=== PATIENT | male | born 1960 | race Caucasian/White ===

== ENCOUNTER 2022-03-28 10:32 | Inpatient (IN) ==
[2022-03-28] MEDS ORDERED: LORazepam 2 MG/ML VIAL IV ONE (11:09)
[2022-03-28] MEDS: DIAZEPAM 10 MG/2 ML SYRINGE IV PRN ×9 (11:12→20:27)
--- NOTE | 2022-03-28 11:24 | Emergency Department Note ---
Alcohol HPI General Chief Complaint: Alcohol Stated Complaint: Alcohol Time Seen by Provider: 03/28/22 10:37 Source: patient Mode of arrival: ambulatory Limitations: no limitations History of Present Illness HPI Narrative: Narrative: 62-year-old male presents the emergency department for alcohol withdrawal. Patient states that he for about the last month has been drinking about a half a gallon of hard alcohol every single day he says last drink was about an hour prior to coming in and said he has been trying to slow down his drinking over the last week and he said he goes and has these tremors and just goes back to drinking. He said he has previously stopped and said he previously has needed inpatient treatment. He dates that he does have history of seizures with says long as he gets treatment is not as bad. He said he does not remember when his last seizure was. He said that he came here as he knows that he needs help and he does want to finally stop drinking. He states that he is unable to do Librium as it makes him go crazy. He denies any other symptoms otherwise. This feels like he needs help to stop his drinking he currently has no homicidal or suicidal ideations Related Data Home Medications Medication Instructions Recorded Confirmed cholecalciferol (vitamin D3) 25 1,000 unit PO QDAY 02/08/17 03/28/22 mcg (1,000 unit) capsule vitamin B complex 1 tab PO QDAY 02/08/17 03/28/22 multivitamin 1 tab PO QDAY 05/22/17 03/28/22 magnesium oxide 400 mg (241.3 mg 400 mg PO QDAY 10/15/19 03/28/22 magnesium) tablet glucosamine HCl 1,500 mg tablet 1,500 mg PO QDAY 04/12/20 03/28/22 potassium gluconate 595 mg (99 mg) 595 mg PO QDAY 11/16/20 03/28/22 tablet Previous Rx's Medication Instructions Recorded blood-glucose meter (Glucocard #1 ea 04/09/18 Expression) blood sugar diagnostic (Glucocard #100 ea 04/12/20 Expression strips) lancets 33 gauge #100 ea 04/12/20 metformin 1,000 mg tablet 1,000 mg PO BID #180 tabs 12/12/21 omeprazole 20 mg capsule,delayed 20 mg PO QDAY PRN gastric reflux 03/09/22 release #90 caps Allergies Allergy/AdvReac Type Severity Reaction Status Date / Time chlordiazepoxide Allergy Unknown Other Verified 03/28/22 10:32 [From Librium] clindamycin Allergy Gastrointestinal Verified 03/28/22 10:32 Upset lorazepam [From Ativan] AdvReac Mild Agitated Verified 03/28/22 11:17 Review of Systems ROS ROS Narrative: Narrative: All systems ED: reviewed and negative except as stated. PFSH Narrative Patient History Narrative: Narrative: Medical/Surgical/Family History All Active Problems Alcohol withdrawal (Acute) Colonoscopy planned (Acute) Lesion of left ear (Acute) Skin lesion (Acute) Hypotension (Acute) Actinic keratoses (Acute) Right knee pain (Acute) Nerve pain (Acute) Type 2 diabetes mellitus without complications (Chronic) Abnormal findings on diagnostic imaging of lung (Chronic) Arthritis (Chronic) Obstructive sleep apnea syndrome (Chronic) Sarcoidosis (Chronic) H/O vasectomy (Chronic) H/O colonoscopy (Chronic 09/13/14) History of appendectomy (Chronic) S/P anal fissurectomy (Chronic) Thrombocytopenia (Chronic) Local superficial swelling, mass or lump (Chronic) Pancreatitis (Chronic) Leukopenia (Chronic) Hypertension, essential (Chronic 01/25/06) Hyperlipidemia (Chronic) Hepatitis, alcoholic (Chronic) Elevated liver enzymes (Chronic) Dysmetabolic syndrome X (Chronic 01/25/06) Diverticulosis of colon (Chronic 09/13/14) Alcohol withdrawal (Chronic) Alcohol abuse (Chronic) Medical History Abnormal findings on diagnostic imaging of lung Actinic keratoses Alcohol abuse Chronic Alcohol withdrawal Arthritis Colonoscopy planned Diverticulosis of colon (09/13/14) Dr. Alegre Dysmetabolic syndrome X (01/25/06) Elevated liver enzymes Hepatitis, alcoholic Hyperlipidemia Hypertension, essential (01/25/06) Hypotension Lesion of left ear Leukopenia Mild, secondary to alcohol abuse Local superficial swelling, mass or lump Salivary gland Obstructive sleep apnea syndrome Pancreatitis Acute, secondary to chronic alcohol abuse Right knee pain Sarcoidosis Skin lesion Thrombocytopenia Unspecified Type 2 diabetes mellitus without complications Surgical History H/O colonoscopy (09/13/14) Dr. Alegre H/O vasectomy History of appendectomy S/P anal fissurectomy Family History Father Alcohol abuse Mother Malignant neoplasm of colon Colon cancer, resulted in Diabetes mellitus Social History Smoking Status: Former smoker Alcohol Intake Frequency: former alcohol drinker Substance Use: does not use Exam Narrative Narrative: Narrative: Vital signs noted General: Awake. Alert. No distress. Skin: Warm. Dry. No rash. HEENT: NCAT. PERRL. EOMI. No conjunctivitis. No nystagmus. No pharyngitis. Membranes moist. Neck: No PTP. Good ROM. No meningeal signs. No stridor. No thyromegaly. No JVD. Cardiovascular: Tachycardic but regular. No murmur. No rubs. No gallops. Respiratory: No respiratory distress. Breath sounds equal. Lungs clear. Gastrointestinal: Abdomen soft. No tenderness. No distention. Normal bowel sounds. No palpable organomegaly or masses. Back: No deformity. No CVAT. Musculoskeletal: No tenderness. No swelling. No erythema. No edema. Good peripheral pulses x 4 Lymphatic: No palpable adenopathy. Neurological: No focal neurological deficits observed. Mild at agitation and tremors in both hands General Limitations: no limitations Course Vital Signs Vital signs: Vital Signs Temperature 98.2 F 03/28/22 10:32 Pulse Rate 115 H 03/28/22 10:32 Respiratory Rate 20 03/28/22 10:32 Blood Pressure 182/107 03/28/22 10:32 Pulse Oximetry (%) 95 03/28/22 10:32 Oxygen Delivery Method 03/28/22 10:32 Temperature 98.2 F 03/28/22 10:32 Pulse Rate 116 H 03/28/22 15:50 Respiratory Rate 18 03/28/22 15:01 Blood Pressure 155/103 03/28/22 15:30 Pulse Oximetry (%) 93 03/28/22 15:50 Oxygen Delivery Method 03/28/22 10:32 [facility] MDM Narrative Medical decision making narrative: Narrative: Patient presents in mild delirium tremens at this time. Does have mild tremors bilaterally but he is alert and oriented. We will go ahead and get basic labs including alcohol level. Patient will also had a CIWA CIWA done. His first CIWA was 18 and he said he actually drank about an hour ago. He is a does have history of seizures I am worried about possible him going into seizures. We will go ahead and give him Valium based on the CIWA protocol. Patient I think does need to be admitted for further evaluation as well as continued CIWA protocol so he does not going to seizures and these possibly do not become lethal. Once all the labs come back I will speak with hospitalist about admission. Patient was doing well with the Valium that he was receiving per CIWA protocol. Labs came back no acute findings CBC was normal CMP was normal just mildly elevated AST ALT and alk phos. Patient is still cannot be treated in the outpatient setting due to my believe due to worry about seizures and I think he does need benzodiazepine treatment. I did speak with Dr. Harris who has agreed to admit the patient for alcohol withdrawal. Lab Data Result diagrams: 03/28/22 12:45 03/28/22 10:58 Labs: Lab Results 03/28/22 03/28/22 03/28/22 Range/Units 10:44 10:58 10:58 WBC TNP RBC TNP Hgb TNP Hct TNP MCV TNP MCH TNP MCHC TNP RDW TNP Plt Count TNP MPV TNP Immature Gran % (Auto) TNP Neut % (Auto) TNP Lymph % (Auto) TNP [place] % (Auto) TNP Eos % (Auto) TNP Baso % (Auto) TNP Lymph # (Auto) TNP [place] # (Auto) TNP Eos # (Auto) TNP Baso # (Auto) TNP Immature Gran # TNP Absolute Neutrophils TNP Differential Comment TNP Sodium TNP Potassium TNP Chloride TNP Carbon Dioxide TNP Anion Gap TNP BUN TNP Creatinine TNP GFR Calculation TNP Glucose TNP Calcium TNP Total Bilirubin TNP AST TNP ALT TNP Alkaline Phosphatase TNP Total Protein TNP Albumin TNP Globulin TNP Albumin/Globulin Ratio TNP Ethyl Alcohol mg/dL 176.0 mg/dL Ethyl Alcohol g/dL 0.176 H (<0.010) gm/dL 03/28/22 Range/Units 12:45 WBC 3.6 L RBC 4.44 L Hgb 13.9 Hct 41.2 MCV 92.8 MCH 31.3 MCHC 33.7 RDW 14.9 H Plt Count 132 L MPV 10.0 Immature Gran % (Auto) 0.3 Neut % (Auto) 71.4 Lymph % (Auto) 16.3 [place] % (Auto) 10.1 Eos % (Auto) 0.8 Baso % (Auto) 1.1 Lymph # (Auto) 0.58 L [place] # (Auto) 0.36 Eos # (Auto) 0.03 Baso # (Auto) 0.04 Immature Gran # 0.01 Absolute Neutrophils 2.53 Differential Comment Sodium Potassium Chloride Carbon Dioxide Anion Gap BUN Creatinine GFR Calculation Glucose Calcium Total Bilirubin AST ALT Alkaline Phosphatase Total Protein Albumin Globulin Albumin/Globulin Ratio Ethyl Alcohol mg/dL mg/dL Ethyl Alcohol g/dL (<0.010) gm/dL Discharge Plan Patient/Caregiver Discharge Instructions Pt seen by MANAGER VEHICLE/PA only: No Clinical Impression: Alcohol withdrawal Patient Disposition: Xfer As Inpt ([facility]) Condition: Good Discharge Date/Time: 03/28/22 16:05
[2022-03-28 12:04] LABS: Alcohol,Blood 0.176 gm/dL (<0.010)
[2022-03-28] MEDS ORDERED: ONDANSETRON 4 MG/2 ML VIAL IV ONE ×2 (12:38→13:58)
--- NOTE | 2022-03-28 13:52 | Internal Med History&Physical ---
HPI History of Present Illness Patient information: Note initiated : 03/28/22 at 1:43 pm Service Date, if different from initiated Date: [] Patient: Miguel A Dumas 62 y/o M admitted on for Alcohol. Chief Complaint: [] History of present illness: Mr. Dumas is a 62 year old male with a history of severe alcohol use disorder complicated by alcohol withdrawal seizures, recurrent pancreatitis felt to be secondary to alcohol use, type 2 diabetes mellitus, hypertension, obstructive sleep apnea who presented to the emergency department with concerns of alcohol withdrawal. The patient says that he has been drinking half a gallon of vodka daily for about 3 weeks. He says that when he tries to reduce his alcohol intake he develops alcohol withdrawal symptoms. Additionally, the patient has experienced epigastric abdominal pain and has had poor nutritional intake over the last few weeks. Hospital medicine was consulted for admission for alcohol withdrawal. Review of systems Constitutional: no fever, fatigue, or weight loss Eyes: no vision changes or pain Cardiovascular: No palpitations Respiratory: no cough or dyspnea Gastrointestinal: Epigastric abdominal pain, nausea but denies vomiting. Genitourinary: no dysuria or difficulty voiding Musculoskeletal: Bilateral lower extremity edema Integumentary: no skin lesion or wound Neurological: no focal weakness or numbness Psychiatric: Positive for anxiety Physical exam Head: Atraumatic, normal inspection. Eyes: normal appearance, no scleral icterus. Neck: full ROM Respiratory: no respiratory distress. Cardiovascular: normal rate and rhythm, S1, S2. GI/Abdominal: Mild epigastric abdominal pain, soft, no guarding. Extremities: Bilateral lower extremity edema, full range of motion, nontender. Neurological: CN II-XII intact, intact motor, intact sensation. Psychiatric: Appears anxious, tremulous with both arms extended Skin: warm, normal color PFSH PFSH All Active Problems Colonoscopy planned (Acute) Lesion of left ear (Acute) Skin lesion (Acute) Hypotension (Acute) Actinic keratoses (Acute) Right knee pain (Acute) Nerve pain (Acute) Type 2 diabetes mellitus without complications (Chronic) Abnormal findings on diagnostic imaging of lung (Chronic) Arthritis (Chronic) Obstructive sleep apnea syndrome (Chronic) Sarcoidosis (Chronic) H/O vasectomy (Chronic) H/O colonoscopy (Chronic 09/13/14) History of appendectomy (Chronic) S/P anal fissurectomy (Chronic) Thrombocytopenia (Chronic) Local superficial swelling, mass or lump (Chronic) Pancreatitis (Chronic) Leukopenia (Chronic) Hypertension, essential (Chronic 01/25/06) Hyperlipidemia (Chronic) Hepatitis, alcoholic (Chronic) Elevated liver enzymes (Chronic) Dysmetabolic syndrome X (Chronic 01/25/06) Diverticulosis of colon (Chronic 09/13/14) Alcohol withdrawal (Chronic) Alcohol abuse (Chronic) Medical History Abnormal findings on diagnostic imaging of lung Actinic keratoses Alcohol abuse Chronic Alcohol withdrawal Arthritis Colonoscopy planned Diverticulosis of colon (09/13/14) Dr. Alegre Dysmetabolic syndrome X (01/25/06) Elevated liver enzymes Hepatitis, alcoholic Hyperlipidemia Hypertension, essential (01/25/06) Hypotension Lesion of left ear Leukopenia Mild, secondary to alcohol abuse Local superficial swelling, mass or lump Salivary gland Obstructive sleep apnea syndrome Pancreatitis Acute, secondary to chronic alcohol abuse Right knee pain Sarcoidosis Skin lesion Thrombocytopenia Unspecified Type 2 diabetes mellitus without complications Surgical History H/O colonoscopy (09/13/14) Dr. 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 smoking status: Former smoker alcohol intake frequency: former alcohol drinker substance use type: does not use MEDS/ALLERGIES Home Medications and Allergies Home Medications Medication Instructions Recorded Confirmed Type cholecalciferol (vitamin D3) 25 1,000 unit PO QDAY 02/08/17 03/28/22 History mcg (1,000 unit) capsule vitamin B complex 1 tab PO QDAY 02/08/17 03/28/22 History multivitamin 1 tab PO QDAY 05/22/17 03/28/22 History blood-glucose meter (Glucocard #1 ea 04/09/18 03/28/22 Rx Expression) magnesium oxide 400 mg (241.3 mg 400 mg PO QDAY 10/15/19 03/28/22 History magnesium) tablet blood sugar diagnostic (Glucocard #100 ea 04/12/20 03/28/22 Rx Expression strips) glucosamine HCl 1,500 mg tablet 1,500 mg PO QDAY 04/12/20 03/28/22 History lancets 33 gauge #100 ea 04/12/20 03/28/22 Rx potassium gluconate 595 mg (99 mg) 595 mg PO QDAY 11/16/20 03/28/22 History tablet metformin 1,000 mg tablet 1,000 mg PO BID #180 tabs 12/12/21 03/28/22 Rx omeprazole 20 mg capsule,delayed 20 mg PO QDAY PRN gastric reflux 03/09/22 03/28/22 Rx release #90 caps Allergies Allergy/AdvReac Type Severity Reaction Status Date / Time chlordiazepoxide Allergy Unknown Other Verified 03/28/22 10:32 [From Librium] clindamycin Allergy Gastrointestinal Verified 03/28/22 10:32 Upset lorazepam [From Ativan] AdvReac Mild Agitated Verified 03/28/22 11:17 EXAM Constitutional Vitals: Temp Pulse Resp BP Pulse Ox O2 Del Method 98.2 F 107 H 15 153/94 95 03/28/22 10:32 03/28/22 13:31 03/28/22 13:31 03/28/22 13:31 03/28/22 13:31 03/28/22 10:32 DATA Data Completed and Pending Labs: Labs from last 24 hours 03/28/22 03/28/22 03/28/22 12:45 12:45 12:44 WBC Pending RBC Pending Hgb Pending Hct Pending MCV Pending MCH Pending MCHC Pending RDW Pending Plt Count Pending MPV Pending Immature Gran % (Auto) Pending Neut % (Auto) Pending Lymph % (Auto) [place] % (Auto) Eos % (Auto) Baso % (Auto) Lymph # (Auto) [place] # (Auto) Eos # (Auto) Baso # (Auto) Immature Gran # Pending Absolute Neutrophils Differential Comment Sodium Pending Potassium Pending Chloride Pending Carbon Dioxide Pending Anion Gap Pending BUN Pending Creatinine Pending GFR Calculation Pending Glucose Pending Calcium Pending Total Bilirubin Pending AST Pending ALT Pending Alkaline Phosphatase Pending Total Protein Pending Albumin Pending Globulin Pending Albumin/Globulin Ratio Pending Urine Color Pending Urine Appearance Pending Urine pH Pending Ur Specific [place] Pending Urine Protein Pending Urine Glucose (UA) Pending Urine Ketones Pending Urine Occult Blood Pending Urine Nitrate Pending Urine Bilirubin Pending Urine Urobilinogen Pending Ur Leukocyte Esterase Pending Ethyl Alcohol mg/dL Ethyl Alcohol g/dL 03/28/22 03/28/22 03/28/22 10:58 10:58 10:44 WBC TNP RBC TNP Hgb TNP Hct TNP MCV TNP MCH TNP MCHC TNP RDW TNP Plt Count TNP MPV TNP Immature Gran % (Auto) TNP Neut % (Auto) TNP Lymph % (Auto) TNP [place] % (Auto) TNP Eos % (Auto) TNP Baso % (Auto) TNP Lymph # (Auto) TNP [place] # (Auto) TNP Eos # (Auto) TNP Baso # (Auto) TNP Immature Gran # TNP Absolute Neutrophils TNP Differential Comment TNP Sodium TNP Potassium TNP Chloride TNP Carbon Dioxide TNP Anion Gap TNP BUN TNP Creatinine TNP GFR Calculation TNP Glucose TNP Calcium TNP Total Bilirubin TNP AST TNP ALT TNP Alkaline Phosphatase TNP Total Protein TNP Albumin TNP Globulin TNP Albumin/Globulin Ratio TNP Urine Color Urine Appearance Urine pH Ur Specific [place] Urine Protein Urine Glucose (UA) Urine Ketones Urine Occult Blood Urine Nitrate Urine Bilirubin Urine Urobilinogen Ur Leukocyte Esterase Ethyl Alcohol mg/dL 176.0 Ethyl Alcohol g/dL 0.176 H A/P Narrative A/P Narrative: Assessment: 62 year old male with a history of severe alcohol use disorder complicated by alcohol withdrawal seizures, recurrent pancreatitis felt to be secondary to alcohol use, type 2 diabetes mellitus, hypertension, obstructive sleep apnea admitted for alcohol withdrawal. The patient has previously been treated with acamprosate and oral naltrexone for severe alcohol use disorder. #Alcohol withdrawal, moderate to high risk #History of alcohol withdrawal seizures #Type 2 diabetes mellitus #Hypertension #Hyperlipidemia #History of recurrent pancreatitis likely secondary to alcohol #Severe alcohol use disorder Plan -Follow-up pending CBC and CMP from the ED. -CIWA protocol with Valium IV as needed, monitor closely and escalate cares as needed. -Scheduled Valium PO for now with plans to taper off next several days. -Vitamin supplementation. -Monitor and replace electrolytes as needed. -IV fluid today. -Correction Humalog SSIlow. -Protonix p.o. daily. -Home medication reconciliation. -Regular diet. -Seizure precautions. -DVT prophylaxis: Heparin SQ -CODE STATUS: Full -Disposition: Probably home when stable however the patient might be a candidate for inpatient treatment for severe alcohol use disorder if he is agreeable. Consider naltrexone IM every 4 weeks if the patient is interested for improved adherence. Time Spent With Patient Time: Total time spent is greater than 50% in coordination of care (as documented) at patient's floor/unit and/or counseling patient:
[2022-03-28 14:02] LABS: Basophils # (Auto) 0.04 K/mcL (0.00-0.30); Basophils % (Auto) 1.1 % (0.0-2.0); Eosinophils # (Auto) 0.03 K/mcL (0.00-0.70); Eosinophils % (Auto) 0.8 % (0.0-7.0); Hematocrit 41.2 % (40.1-51.0); Hemoglobin 13.9 g/dL (13.7-17.5); Lymphocytes # (Auto) 0.58 K/mcL (1.50-4.80); Lymphocytes % (Auto) 16.3 % (15.5-49.0); Mean Cell Volume 92.8 fL (80.0-100.0); Mean Corpuscular HGB Conc 33.7 g/dL (31.0-36.0); Monocytes # (Auto) 0.36 K/mcL (0.10-0.90); Monocytes % (Auto) 10.1 % (1.0-12.0); Neutrophils % (Auto) 71.4 % (38.0-78.0); Platelet Count 132 K/mcL (140-440); RBC 4.44 M/mcL (4.63-6.08); Red Cell Distribution Width 14.9 % (11.5-14.5); WBC 3.6 K/mcL (4.5-11.0)
[2022-03-28] MEDS ORDERED: DEXTROSE 50% 50 ML VIAL IV PRN (16:00)
[2022-03-28] MEDS ORDERED: DIAZEPAM 10 MG/2 ML SYRINGE IV PRN (16:00)
[2022-03-28] MEDS ORDERED: DEXTROSE 31 GM ORAL.SUSP PO PRN (16:00)
[2022-03-28] MEDS ORDERED: LACTULOSE 20 GM/30 ML ORAL.SOL PO PRN (16:00)
[2022-03-28] MEDS ORDERED: ACETAMINOPHEN 325 MG TABLET PO PRN (16:00)
[2022-03-28] MEDS ORDERED: SENNOSIDES 1 TABLET PO PRN (16:00)
[2022-03-28] MEDS ORDERED: LORazepam 2 MG/ML VIAL IV PRN (16:43)
[2022-03-28] MEDS ORDERED: THIAMINE 100 MG TABLET PO SCH (17:00)
[2022-03-28] MEDS: 0.9 % SODIUM CHLORIDE 10 ML SYRINGE IV SCH ×4 (17:02→21:44)
[2022-03-28] MEDS: 0.9 % SODIUM CHLORIDE 1,000 ML IV SCH (17:13)
[2022-03-28] MEDS: DIAZEPAM 5 MG TABLET PO SCH ×2 (17:13→23:50)
[2022-03-28] MEDS: INSULIN LISPRO 1 UNIT/0.01 ML UNIT SQ SCH ×2 (17:44→20:45)
[2022-03-28] MEDS: ONDANSETRON 4 MG/2 ML VIAL IV PRN (20:16)
[2022-03-28] MEDS: DOCUSATE SODIUM 100 MG CAPSULE PO SCH (20:44)
[2022-03-28] MEDS: PANTOPRAZOLE 40 MG TABLET PO SCH (20:44)
[2022-03-28] MEDS: HEPARIN 5,000 UNIT/ML VIAL SQ SCH (20:46)
[2022-03-28] MEDS: PROMETHAZINE 25 MG/ML VIAL IV PRN (21:43)
[2022-03-29] MEDS: DIAZEPAM 10 MG/2 ML SYRINGE IV PRN ×4 (02:35→21:37)
[2022-03-29] MEDS: 0.9 % SODIUM CHLORIDE 1,000 ML IV SCH (05:35)
[2022-03-29] MEDS: 0.9 % SODIUM CHLORIDE 10 ML SYRINGE IV SCH ×6 (05:37→22:09)
[2022-03-29] MEDS ORDERED: MAGNESIUM SULFATE 2 GM/50 ML BAG IV ONE (07:36)
[2022-03-29 07:48] LABS: ALT/SGPT 55 U/L (<40); AST/SGOT 71 U/L (<40); Albumin/Globulin Ratio 2.1 (1.0-2.3); Alkaline Phosphatase 106 U/L (39-117); Bilirubin,Direct 0.3 mg/dL (<0.3); Bilirubin,Total 1.1 mg/dL (0.1-1.0); Blood Urea Nitrogen 7 mg/dL (6-20); Calcium 8.2 mg/dL (8.6-10.4); Carbon Dioxide 27 mmol/L (22-30); Chloride 94 mmol/L (96-108); Globulin 1.9 gm/dL (2.2-3.7); Glomerular Filtration Rate 102; Glucose 166 mg/dL (70-105); Lactate Dehydrogenase 232 U/L (135-225); Phosphorous 2.7 mg/dL (2.5-4.5); Triglycerides 91 mg/dL (<150); Uric Acid 10.2 mg/dL (2.5-8.0)
[2022-03-29] MEDS: DIAZEPAM 5 MG TABLET PO SCH (07:52)
[2022-03-29] MEDS: PROMETHAZINE 25 MG/ML VIAL IV PRN ×2 (08:10→19:00)
[2022-03-29 08:40] LABS: Anisocytosis 1+ (None Seen); Eosinophils % (Manual) 2 % (0-7); Hematocrit 38.1 % (40.1-51.0); Hemoglobin 12.5 g/dL (13.7-17.5); Lymphocytes % 18 % (15-49); Mean Cell Volume 95.3 fL (80.0-100.0); Mean Corpuscular HGB Conc 32.8 g/dL (31.0-36.0); Mean Platelet Volume 9.7 fL (8.8-12.5); Monocytes % (Manual) 7 % (1-12); Platelet Count 84 K/mcL (140-440); Platelet Estimate DECREASED (Normal); RBC Morphology ABNORMAL (Normal); Red Cell Distribution Width 15.3 % (11.5-14.5); Segmented Neutrophils % 73 % (38-78); WBC 3.5 K/mcL (4.5-11.0)
[2022-03-29] MEDS: INSULIN LISPRO 1 UNIT/0.01 ML UNIT SQ SCH ×4 (08:41→21:38)
[2022-03-29] MEDS: DOCUSATE SODIUM 100 MG CAPSULE PO SCH ×2 (08:42→21:37)
[2022-03-29] MEDS: MULTIVIT,THER IRON,CA,FA & MIN 1 TABLET PO SCH (08:42)
[2022-03-29] MEDS: THIAMINE 200 MG in 0.9 % SODIUM CHLORIDE 50 ML IV SCH (08:42)
[2022-03-29] MEDS: FOLIC ACID 1 MG TABLET PO SCH (08:42)
[2022-03-29] MEDS ORDERED: THIAMINE 100 MG/ML VIAL IM SCH (09:00)
[2022-03-29 09:32] LABS: Appearance,Urine CLEAR (Clear); Bilirubin,Urine NEGATIVE (Negative); Color,Urine LT. YELLOW; Culture Indicated,Urine No; Glucose,Urine (UA) NEGATIVE (Negative); Ketones,Urine 40 mg/dL (Negative); Leukocyte Esterase,Urine NEGATIVE /uL (Negative); Mucus,Urine FEW /hpf; Nitrate,Urine NEGATIVE (Negative); Protein,Urine 30 mg/dL (Negative); Specific Gravity,Urine 1.015 (1.000-1.035); Urine Blood TRACE-LYSED ery/mcL (Negative); Urine RBC 0 /hpf (0-3); Urine Squamous Epithelial Cell 0 /hpf (0-4); Urine WBC 1 /hpf (0-4); Urobilinogen,Urine Normal
[2022-03-29 09:32] LABS: ALT/SGPT 70 U/L (<40); AST/SGOT 96 U/L (<40); Albumin 4.4 gm/dL (3.2-5.2); Albumin/Globulin Ratio 1.7 (1.0-2.3); Alkaline Phosphatase 122 U/L (39-117); Bilirubin,Total 0.7 mg/dL (0.1-1.0); Blood Urea Nitrogen 5 mg/dL (6-20); Calcium 8.8 mg/dL (8.6-10.4); Carbon Dioxide 22 mmol/L (22-30); Chloride 89 mmol/L (96-108); Globulin 2.6 gm/dL (2.2-3.7); Glomerular Filtration Rate 102; Glucose 154 mg/dL (70-105)
[2022-03-29] MEDS: HEPARIN 5,000 UNIT/ML VIAL SQ SCH (10:03)
--- OUTSIDE RECORDS SUMMARY | 2022-03-29 12:38 | External Medical Summary ---
:1960 Author Care Team Providers Name Role Phone BETTY SHRESTHA OTHER [phone] LUKE HARRIS MD Primary Care Provider [phone] Allergies Code Code System Name Reaction Severity Status Onset 258 RxNorm Clindamycin Active Librium Active Medications Name Status Start Date Stop Date acamprosate 333 mg tablet,delayed release Completed 11/07/2016 Glucosamine 1500 Complex Unknown Not pipe ilable once daily hydrocodone 5 mg-acetaminophen 325 mg tablet Unknown Not available lorazepam 1 mg tablet Unknown Not availa ble lorazepam 2 mg tablet Unknown Not availa ble metformin hydrochloride 500 mg tabs Active Not available 1 po bid methylprednisolone 4 mg tablets in a dose pack Unknown Not available omeprazole 20 mg capsule,delayed release Active Not available omeprazole dr 20 mg cpdr Completed 019 ondansetron 4 mg disintegrating tablet Unknown Not available ondansetron HCl 4 mg tablet Unknown Not available oxycodone 5 mg tablet Unknown Not availa ble prednisone 10 mg tablet Active Not avai lable prednisone 20 mg tablet Unknown Not avai lable prednisone 5 mg tablet Active Not avail able Take 1 tablet every day by oral route for 30 days. sucralfate 1 gram tablet Unknown Not pipe ilable Problems Name Status Onset Date Source Sarcoidosis Active Encounter Obesity Active Encounter Obstructive Sleep Apnea Syndrome Active Encounter Arthritis Active Encounter Abnormal Findings on Diagnostic Imaging of Lung Active Encounter Procedures Date Name Performed by Appendectomy Information not avai lable 03/08/2015 X-ray, Chest, 2 View [facility] [address] [place], [place] [id number] ([address]) 03/08/2015 Electrocardiogram [facility] [address] [place], [place] [id number] (Work Place) 03/08/2015 Echocardiogram [facility] [address] [place], [place] [id number] (Work Place) 03/09/[address] [facility] (Sleep Lab) [address] [place] [id number] (Work Place) 03/09/2015 Electrocardiogram [facility] [address] [place] [id number] (Work Place) 08/15/2015 X-ray, Chest, 2 View [facility] [address] [place], [place] [phone] (Work Place) 08/12/2015 CT, Chest [facility] [address] [place] [address] (Work Place) 08/25/2015 CT, Chest [facility] [address] [place] [address] (Work Place) 04/09/2016 CT, Chest, W/ Contrast [facility] [address] [place] [address] (Work Place) 07/15/2018 CT, Chest, W/o Contrast [facility] [address] [place], [place] [phone] (Work Place) Notes: medianstinoscopy Results Lab Results Date Name Specimen Result Interpretation Description Value Range Status Address 08/07/2017 CMP, Serum or Above High Glucose 108 mg/dL 65-9 9 Final Laboratory Plasma Normal mg/dL [facility] [address] [place] [address] Bun 18 mg/dL 8-25 Final Laborato ry mg/dL [facility] : [address] [place] [address] Creatinine 0.84 0.40-1 Final Labor atory mg/dL .00 [facility] mg/dL [facility] : [address] [place] [address] Al[place] eGFR If > 60 >60 Final Laborato ry Nonafricn AM [facility] : [address] [place] [address] [place] BUN/creatini 21.4 11.0 - Final Lab oratory ne Ratio 35.0 [facility] : [address] [place] [address] [place] Sodium 144 mm/L 135-14 Final Laborat ory 5 mm/L [facility] : [address] [place] [address] Potassium 4.8 mm/L 3.5-5. Final Labo ratory 0 mm/L [facility] : [address] [place] [address] Chloride 102 mm/L 99-109 Final Labor atory mm/L [facility] : [address] [place] [address] Carbon 25 mm/L 23-33 Final Laborato ry Dioxide, mm/L [facility] Total [facility] : [address] [place] [address] Calcium 10.2 8.5-10 Final Laborato ry mg/dL .2 [facility] n mg/dL [facility] : [address] [place] [address] Protein, 7.4 g/dL 6.3-8. Final Labor atory Total 0 g/dL [facility] : [address] [place] [address] Albumin 5.0 g/dL 3.5-5. Final Labora tory 0 g/dL [facility] : [address] [place] [address] Globulin, 2.4 g/dL 1.8-3. Final Labo ratory Total 5 g/dL [facility] : [address] [place] [address] A/g Ratio 2.1 ratio 1.0-2. Final Lab oratory 7 [facility] ratio [facility] : [address] [place] [address] Bilirubin, 0.5 mg/dL 0.1-1. Final La boratory Total 5 Corpor[facility] n mg/dL [facility] : [address] [place] [address] Alkaline 96 u/L 35-115 Final Laborat ory Phosphatase u/L [facility] : [address] [place] [address] Ast (Sgot) 22 u/L 10-45 Final Labor atory u/L [facility] : [address] [place] [address] Alt (Sgpt) 27 u/L 10-65 Final Labor atory u/L [facility] : [address] [place] [address] 08/07/2017 Calcium, Calcium, 5.17 4.75-5 Final L aboratory Ionized, Ionized, mg/dL .30 Corpor ation Quant ISE, Serum mg/dL Of Emeli joellen: Serum or 144 Yor k Plasma [facility] 11/07/2016 Calcium, Calcium, 5.17 4.75-5 Final [place] Ionized Ionized mg/dL .30 Health: 2003 mg/dL [facility] [place] Calcium, pH 5.20 4.75-5 Final [place] Normalized mg/dL .30 Health : 2002 mg/dL [place] 11/07/2016 CMP, Serum or Sodium 140 135-14 Final [facility] Plasma mmol/L 5 Health: 20 03 mmol/L [place] Potassium 4.6 3.5-5. Final [place] mmol/L 0 Health: 20 03 mmol/L [place] Chloride 101 99-109 Final [place] mmol/L mmol/L Health: 20 [facility] [place] Low Co2 22 mmol/L 23-33 Final [place] mmol/L Health: 20 [facility] [place] Bahmicah Ramirez [place] High Glucose 151 mg/dL 65-99 Final [place] mg/dL Health: 20 [facility] [place] Bun 17 mg/dL 8-25 Final [facility] mg/dL Health: 20 [facility] [place] Creatinine 0.79 0.50-1 Final [place] mg/dL .30 Health: 20 mg/dL [facility] [place] Calcium 9.0 mg/dL 8.5-10 Final [place] .2 Health: 20 03 mg/dL [facility] [place] Protein, 7.0 g/dL 6.3-8. Final [place] Total 0 g/dL Health: 20 [facility] [place] Albumin 4.5 g/dL 3.5-5. Final [place] 0 g/dL Health: 20 [facility] [place] Bilirubin, 0.4 mg/dL 0.1-1. Final [place] Total 5 Health: 20 03 mg/dL [facility] [place] Alkaline 82 U/L 35-115 Final [place] Phosphatase U/L Healt h: 2002 [facility] [place] Ast 24 U/L 10-45 Final [facility] U/L Health: 20 [facility] [place] Alt 33 U/L 10-65 Final [facility] U/L [facility]: [facility] [place] High Anion Gap 17 mmol/L 5-16 Final [place] ten[place] mmol/L Health: 20 [facility] [place] Estimated >60 >60 Final [place] GFR (Calc) mL/min/1. mL/min Hea lth: 2003 73m2 /1.73m [facility] 2 [facility] [place] 11/07/2016 Rheumatoid Rheumatoid <7 IU/mL <14 Fi nal [facility] Factor Factor IU/mL Health[facility] 20 [facility] [place] 11/07/2016 TIMOTHY Timothy negative neg Final Labc orp (Antinuclear (Col umbus Ga Antibodies) Lab): 1919 Screen, Serum [facility] [address], [facility] us 03/08/2015 Urinalysis Color yellow Final [place] with Health: 20 03 Microscopic [place] [facility] [facility] [place] Appearance clear Final [place] Health: 20 [facility] [place] Glucose negative neg Final [place] mg/dL mg/dL Health: 20 [facility] [place] Bilirubin negative neg Final [place] Health: 20 [facility] [place] Ketones negative neg Final [place] mg/dL mg/dL Health: 20 [facility] [place] Specific 1.021 1.001- Final [place] 1.030 Health: 2 003 [facility] [place] Ph 5.0 5.0-7. Final [facility] 5 Health: 20 03 [facility] [place] Protein negative neg Final [place] mg/dL mg/dL Health: 20 03 [facility] [place] Urobilinogen <2.0 <2.0 Final Tony tenai mg/dL mg/dL Health: [address] [facility] [place] Nitrite negative neg Final [place] Health: [address] [facility] [place] Blood negative neg Final [facility]: 20 [facility] [place] Leukocyte negative neg Final [place] Esterase Health: 2002 [facility] [place] Wbc <1 /hpf <6 Final [facility] /hpf Health: 30 07 [facility] [place] Rbc <1 /hpf <3 Final [facility] /hpf Health: 30 07 [facility] [place] ABNORMAL Mucus rare /lpf Final [place] Health: 30 07 [facility] [place] 03/08/2015 Culture, Culture If see below Fin al [facility] Urine Indicated Health: 2002 [facility] [place] 03/08/2015 CMP, Serum or Sodium 141 135-14 Final [facility] Plasma mmol/L 5 ([facility] mmol/L Lab): [address], [place] Potassium 4.3 3.5-5. Final [facility] p mmol/L 3 ([facility] mmol/L Lab): [address], [place] Chloride 106 99-109 Final [facility] mmol/L mmol/L ([facility] Lab): [address], [place] Co2 30 mmol/L 22-31 Final [facility] mmol/L ([facility] Lab): [address], [place] High Glucose 125 mg/dL 65-99 Final [facility] r[facility] mg/dL ([facility] Lab): [address], [place] Bun 24 mg/dL 8-25 Final [facility] mg/dL ([facility] Lab): [address], [place] Creatinine 0.88 0.70-1 Final [facility] r[facility] mg/dL .30 ([facility] mg/dL Lab): [address], [place] Calcium 9.8 mg/dL 8.5-10 Final [facility] r[facility] .2 ([facility] mg/dL Lab): [address], [place] Protein, 7.3 g/dL 6.2-8. Final [facility] Total 2 g/dL ([facility] Lab): [address], [place] Albumin 4.3 g/dL 3.5-4. Final [facility] p 7 g/dL ([facility] Lab): [address], [facility] Bilirubin, 0.6 mg/dL 0.1-1. Final [facility] Total 5 ([facility] mg/dL Lab): [address], [facility] Alkaline 81 U/L 35-115 Final [facility] Phosphatase [facility]L [facility] [address], [facility] [place] Ast 27 U/L 10-45 Final [facility] U/L ([facility] Lab): [address], [facility] Alt 29 U/L 10-65 Final [facility] U/L ([facility] Lab): [address], [facility] Anion Gap 5 mmol/L 5-16 Final [facility] orp mmol/L ([facility] Lab): [address], [facility] BUN/creatini 27.3 11-35 Final Lab ting ne Ratio ratio ratio ([facility] (Calc) Lab): [address], [facility] Estimated >60 >60 Final [facility] p GFR (Calc) mL/min/1. mL/min ([facility] 73m2 /1.73m Lab): [address], [facility] 03/08/2015 Vitamin D, Low Vitamin D, 21 NG/mL 30-150 Fi nal [facility] 25-Hydroxy, 25-Hydroxy NG/mL ( [facility] Total, Serum Lab) : [address], [facility] 03/08/2015 Calcium, Calcium, 21.2 2.2-32 Final [facility] Urine Urine Random mg/dL .6 ([facility] mg/dL Lab): [address], [facility] 03/08/2015 Cbc White Blood 4.2 K/uL 3.8-11 Final [facility] Cells .0 ([facility] K/uL Lab): [address], [facility] Red Blood 4.37 M/uL 4.20-5 Final Lab ting Cells .70 ([facility] M/uL Lab): [address], [facility] Hemoglobin 13.3 g/dL 13.2-1 Final [facility] 7.0 ([facility] g/dL Lab): [address], [place] Low Hematocrit 38.8 % 39.0-5 Final [facility] rp 0.0 % ([facility] Lab): [address] Mcv 88.9 fL 80.0-1 Final [facility] 00.0 ([facility] fL Lab): [address], [facility] [place] Mch 30.4 pg 27.0-3 Final [facility] 4.0 pg ([facility] Lab): [address], [facility] us Mchc 34.2 g/dL 32.0-3 Final [facility] 5.5 ([facility] g/dL Lab): [address], [facility] us Rdw 13.8 % 11.0-1 Final [facility] 5.5 % ([facility] Lab): [address], [facility] us Platelets 161 K/uL 150-40 Final [facility] orp 0 K/uL ([facility] Lab): [address], [place] 03/08/2015 Vitamin D, Vitamin D 35.3 19.9-7 Final [facility] 1,25-Dihydrox Dihydroxy pg/mL 9.3 ([facility] y, Serum 1,25 pg/mL Lab): [address] Past Encounters None recorded. Social History Tobacco Smoking Status Former Smoker (1/2 pack per day) Not es: quit 2009 Vaccine List Vaccine Type influenza, seasonal, injectable 02/11/2016 02/10/2018 pneumococcal conjugate PCV 13 02/11/2016 Plan of Care Reminders Provider Appointments None recorded. Lab None recorded. Referral None recorded. Procedures None recorded. Surgeries None recorded. Imaging None recorded. Vitals 08/26/2018 02:00PM PFT 60 Height Weight BMI 6 ft 263 lbs 35.7 kg/m2 08/26/2018 03:00PM Office Visit after PFT 20 Height Weight BMI Blood Pressure 6 ft 263 lbs 35.7 kg/m2 128/83 mm[Hg] 08/07/2017 11:40AM OFFICE VISIT 20 Height Weight BMI Blood Pressure 6 ft 270 lbs 36.6 kg/m2 141/92 mm[Hg] 11/07/2016 11:40AM OFFICE VISIT 20 Height Weight BMI Blood Pressure 6 ft 258 lbs 35 kg/m2 150/89 mm[Hg] 03/12/2016 01:00PM OFFICE VISIT 20 Height Weight BMI Blood Pressure 6 ft 250 lbs 33.9 kg/m2 143/90 mm[Hg] 10/13/2015 02:20PM OFFICE VISIT 20 Height Weight BMI Blood Pressure 6 ft 257 lbs 34.9 kg/m2 143/90 mm[Hg] 08/12/2015 11:15AM OFFICE VISIT 15 Height Weight BMI Blood Pressure 6 ft 267 lbs 36.2 kg/m2 137/88 mm[Hg] 04/26/2015 11:00AM OFFICE VISIT 15 Height Weight BMI Blood Pressure 6 ft 270 lbs 36.6 kg/m2 125/73 mm[Hg] 03/21/2015 11:15AM OFFICE VISIT 15 Height Weight BMI Blood Pressure 6 ft 270 lbs 36.6 kg/m2 124/80 mm[Hg] 03/08/2015 02:15PM NEW PATIENT 45 Height Weight BMI Blood Pressure 6 ft 263 lbs 35.7 kg/m2 127/80 mm[Hg]
--- OUTSIDE RECORDS SUMMARY | 2022-03-29 12:39 | External Medical Summary ---
:1960 Author Care Team Providers Name Role Phone BETTY SHRESTHA OTHER [phone] LUKE HARRIS MD Primary Care Provider [phone] Allergies Code Code System Name Reaction Severity [...] avai lable 03/08/2015 X-ray, Chest, 2 View [facility] [address] [place], [place] [id number] (Work Place) 03/08/2015 Electrocardiogram [facility] [address] [place], [place] [id number] (Work Place) 03/08/2015 Echocardiogram [facility] [address] [place], [place] [phone] (Work Place) 03/09/[address] [facility] [address] [place] [id number] (Work Place) 03/09/2015 Electrocardiogram [facility] [address] [place] [phone] (Work Place) 08/15/2015 X-ray, Chest, 2 View [facility] [address] [place], [place] [phone] (Work Place) 08/12/2015 CT, Chest [facility] [address] [place] [address] (Work Place) 08/25/2015 CT, Chest [facility] [address] [place] [address] (Work Place) 04/09/2016 CT, Chest, W/ Contrast [facility] [address] [place] [address] (Work Place) 07/15/2018 CT, Chest, W/o Contrast [facility] [address] [place], [place] [phone] (Work Place) Notes: medianstinoscopy Results Lab Results Date Name Specimen Result Interpretation Description Value Range Status Address 08/07/2017 CMP, Serum or Above High Glucose 108 mg/dL 65-9 9 Final Laboratory Plasma Normal mg/dL [facility] : [address] [place] [address] Bun 18 mg/dL 8-25 Final Laborato ry mg/dL [facility] : [address] [place] [address] Creatinine 0.84 0.40-1 Final Labor atory mg/dL .00 [facility] n mg/dL [facility] : [address] [place] [id number] [place] eGFR If > 60 >60 Final Laborato ry Nonafricn AM [facility]ing [facility] : [address] [place] [id number] [place] BUN/creatini 21.4 11.0 - Final Lab oratory ne Ratio 35.0 [facility] : [address] [place] [id number] [place] Sodium 144 mm/L 135-14 Final Laborat ory 5 mm/L [facility] : [address] [place] [address] Potassium 4.8 mm/L 3.5-5. Final Labo ratory 0 mm/L [facility] : [address] [place] [address] Chloride 102 mm/L 99-109 Final Labor atory mm/L [facility] : [address] [place] [address] Carbon 25 mm/L 23-33 Final Laborato ry Dioxide, mm/L [facility]at [facility] Total [facility] : [address] [place] [address] Calcium 10.2 8.5-10 Final Laborato ry mg/dL .2 [facility] mg/dL [facility] : [address] [place] [address] Protein, 7.4 g/dL 6.3-8. Final Labor atory Total 0 g/dL [facility] : [address] [place] [address] Albumin 5.0 g/dL 3.5-5. Final Labora tory 0 g/dL [facility] : [address] [place] [address] Globulin, 2.4 g/dL 1.8-3. Final Labo ratory Total 5 g/dL [facility] : [address] [place] [address] A/g Ratio 2.1 ratio 1.0-2. Final Lab oratory 7 [facility] ratio [facility] : [address] [place] [address] Bilirubin, 0.5 mg/dL 0.1-1. Final La boratory Total 5 [facility] mg/dL [facility] : [address] [place] [address] Alkaline 96 u/L 35-115 Final Laborat ory Phosphatase u/L [facility] ration [facility] : [address] [place] [address] Ast (Sgot) 22 u/L 10-45 Final Labor atory u/L [facility] : [address] [place] [address] Alt (Sgpt) 27 u/L 10-65 Final Labor atory u/L [facility] : [address] [place] [address] 08/07/2017 Calcium, Calcium, 5.17 4.75-5 Final L aboratory Ionized, Ionized, mg/dL .30 Corpor ation Quant ISE, Serum mg/dL Of Emeli joellen: Serum or 144 Yor k Plasma Ltac, Located Within [facility] 11/07/2016 Calcium, Calcium, 5.17 4.75-5 Final [place] Ionized Ionized mg/dL .30 Health: 2003 mg/dL [place] [facility] [place] Calcium, pH 5.20 4.75-5 Final [place] Normalized mg/dL .30 Health : 2002 mg/dL [place] 11/07/2016 CMP, Serum or Sodium 140 135-14 Final [place] Plasma mmol/L 5 Health: 20 03 mmol/L [place] Potassium 4.6 3.5-5. Final [place] mmol/L 0 Health: 20 03 mmol/L [place] Chloride 101 99-109 Final [place] mmol/L mmol/L Health: 20 [place] [facility] [place] Low Co2 22 mmol/L 23-33 Final [place] mmol/L Health: 20 [place] [facility] [place] Bahmicah Ramirez [place] High Glucose 151 mg/dL 65-99 Final [place] mg/dL Health: 20 [place] [facility] [place] Bun 17 mg/dL 8-25 Final [place] mg/dL Health: 20 [place] [facility] [place] Creatinine 0.79 0.50-1 Final [place] mg/dL .30 Health: 20 mg/dL [place] [facility] [place] Calcium 9.0 mg/dL 8.5-10 Final [place] .2 Health: 20 03 mg/dL [place] [facility] [place] Protein, 7.0 g/dL 6.3-8. Final [place] Total 0 g/dL Health: 20 [place] [facility] [place] Albumin 4.5 g/dL 3.5-5. Final [place] 0 g/dL Health: 20 [place] [facility] [place] Bilirubin, 0.4 mg/dL 0.1-1. Final [place] Total 5 Health: 20 03 mg/dL [place] [facility] [place] Alkaline 82 U/L 35-115 Final [place] Phosphatase U/L Healt h: 2002 [place] [facility] [place] Ast 24 U/L 10-45 Final [place] U/L Health: 20 [place] [facility] [place] Alt 33 U/L 10-65 Final [place] U/L [facility]: [facility] [place] High Anion Gap 17 mmol/L 5-16 Final [place] ten[place] mmol/L [facility]: [facility] [place] Estimated >60 >60 Final [place] GFR (Calc) mL/min/1. mL/min Hea lth: 2003 73m2 /1.73m [place] 2 [facility] [place] 11/07/2016 Rheumatoid Rheumatoid <7 IU/mL <14 Fi nal [place] Factor Factor IU/mL [facility] [place] 11/07/2016 TIMOTHY Timothy negative neg Final Labc orp (Antinuclear (Col umbus Ga Antibodies) Lab): 1919 Screen, Serum [facility] [address], [facility] [place] 03/08/2015 Urinalysis Color yellow Final [place] with Health: 20 03 Microscopic [place] [facility] [place] Appearance clear Final [place] Health: 20 [facility] [place] Glucose negative neg Final [place] mg/dL mg/dL Health: 20 [facility] [place] Bilirubin negative neg Final [place] Health: 20 [facility] [place] Ketones negative neg Final [place] mg/dL mg/dL Health: 20 [facility] [place] Specific 1.021 1.001- Final [place] 1.030 Health: 2 003 [facility] [place] Ph 5.0 5.0-7. Final [place] 5 Health: 20 03 [facility] [place] Protein negative neg Final [place] mg/dL mg/dL Health: 20 03 [facility] Urobilinogen <2.0 <2.0 Final [place] ten[place] mg/dL mg/dL Health: 20 03 [facility] [place] Nitrite negative neg Final [place] Health: 20 03 [facility] [place] Blood negative neg Final [place] [facility]: 20 [facility] [place] Leukocyte negative neg Final [place] Esterase Health: 2002 [facility] [place] Wbc <1 /hpf <6 Final [place] /hpf Health: 30 07 [facility] [place] Rbc <1 /hpf <3 Final [place] /hpf Health: 30 07 [facility] [place] ABNORMAL Mucus rare /lpf Final [place] Health: 30 07 [facility] [place] 03/08/2015 Culture, Culture If see below Fin al [place] Urine Indicated Health: 2002 [facility] [place] 03/08/2015 CMP, Serum or Sodium 141 135-14 Final [facility] Plasma mmol/L 5 ([facility] mmol/L Lab): [address], [place] Potassium 4.3 3.5-5. Final [facility] p mmol/L 3 ([facility] mmol/L Lab): [address], [place] Chloride 106 99-109 Final [facility] mmol/L mmol/L ([facility] Lab): [address], [place] Co2 30 mmol/L 22-31 Final [facility] mmol/L ([facility] Lab): [address], [place] High Glucose 125 mg/dL 65-99 Final [facility] mg/dL ([facility] Lab): [address], [place] Bun 24 mg/dL 8-25 Final [facility] mg/dL ([facility] Lab): [address], [place] Creatinine 0.88 0.70-1 Final [facility] mg/dL .30 ([facility] mg/dL Lab): [address], [place] Calcium 9.8 mg/dL 8.5-10 Final [facility] .2 ([facility] mg/dL Lab): [address], [place] Protein, 7.3 g/dL 6.2-8. Final [facility] Total 2 g/dL ([facility] Lab): [address], [place] Albumin 4.3 g/dL 3.5-4. Final [facility] p 7 g/dL ([facility] Lab): [address], [facility] Bilirubin, 0.6 mg/dL 0.1-1. Final [facility] Total 5 ([facility] mg/dL Lab): [address], [facility] Alkaline 81 U/L 35-115 Final [facility] Phosphatase U/L ([facility]): [address], [facility] [place] Ast 27 U/L 10-45 Final [facility] U/L ([facility] Lab): [address], [facility] Alt 29 U/L 10-65 Final [facility] U/L ([facility] Lab): [address], [facility] Anion Gap 5 mmol/L 5-16 Final [facility] orp mmol/L ([facility] Lab): [address], [facility] BUN/creatini 27.3 11-35 Final Lab ting ne Ratio ratio ratio ([facility] (Calc) Lab): [address], [facility] Estimated >60 >60 Final [facility] p GFR (Calc) mL/min/1. mL/min ([facility] 73m2 /1.73m Lab): [address], [facility] 03/08/2015 Vitamin D, Low Vitamin D, 21 NG/mL 30-150 Fi nal [facility] 25-Hydroxy, 25-Hydroxy NG/mL ( [facility] Total, Serum Lab) : [address], [facility] 03/08/2015 Calcium, Calcium, 21.2 2.2-32 Final [facility] Urine Urine Random mg/dL .6 ([facility] mg/dL Lab): [address], [facility] 03/08/2015 Cbc White Blood 4.2 K/uL 3.8-11 Final [facility] Cells .0 ([facility] K/uL Lab): [address], [facility] Red Blood 4.37 M/uL 4.20-5 Final Lab ting Cells .70 ([facility] M/uL Lab): [address], [facility] Hemoglobin 13.3 g/dL 13.2-1 Final [facility] 7.0 ([facility] g/dL Lab): [address], [place] Low Hematocrit 38.8 % 39.0-5 Final [facility] 0.0 % ([facility] Lab): [address] Mcv 88.9 fL 80.0-1 Final [facility] 00.0 ([facility] fL Lab): [address], [facility] us Mch 30.4 pg 27.0-3 Final [facility] 4.0 pg ([facility] Lab): [address], [facility] us Mchc 34.2 g/dL 32.0-3 Final [facility] 5.5 ([facility] g/dL Lab): [address], [facility] us Rdw 13.8 % 11.0-1 Final [facility] 5.5 % ([facility] Lab): [address], [facility] us Platelets 161 K/uL 150-40 Final [facility] orp 0 K/uL ([facility] Lab): [address], [place] 03/08/2015 Vitamin D, Vitamin D 35.3 19.9-7 Final [facility] 1,25-Dihydrox Dihydroxy pg/mL 9.3 ([facility] y, Serum 1,25 pg/mL Lab): [address], [facility] Past Encounters None recorded. Social [...]
[2022-03-29] MEDS ORDERED: POTASSIUM CHLORIDE 20 MEQ TABLET PO ONE (12:48)
--- NOTE | 2022-03-29 12:48 | Internal Med Progress Note ---
SUBJECTIVE Subjective Patient information: Note initiated : 03/29/22 at 12:45 pm Service Date, if different from initiated Date: [] Patient: Miguel A Dumas 62 y/o M admitted on 03/28/22 for Alcohol Withdrawal. Chief Complaint: [] Interval history: Mr. Dumas is a 62 year old male with a history of severe alcohol use disorder complicated by alcohol withdrawal seizures, recurrent pancreatitis felt to be secondary to alcohol use, type 2 diabetes mellitus, hypertension, obstructive sleep apnea who presented to the emergency department with concerns of alcohol withdrawal. The patient says that he has been drinking half a gallon of vodka daily for about 3 weeks. He says that when he tries to reduce his alcohol intake he develops alcohol withdrawal symptoms. Additionally, the patient has experienced epigastric abdominal pain and has had poor nutritional intake over the last few weeks. Hospital medicine was consulted for admission for alcohol withdrawal. 03/29 No significant events overnight, CIWA score this morning was 8. Continues on scheduled Valium and as needed Valium per CIWA scores. Increased thiamine supplementation dose. Replaced magnesium. Physical exam Head: Atraumatic, normal inspection. Eyes: normal appearance, no scleral icterus. Neck: full ROM Respiratory: no respiratory distress. Cardiovascular: normal rate and rhythm, S1, S2. GI/Abdominal: Mild epigastric abdominal pain, soft, no guarding. Extremities: Bilateral lower extremity edema, full range of motion, nontender. Neurological: CN II-XII intact, intact motor, intact sensation. Psychiatric: Does not appear anxious. Skin: warm, normal color Constitutional Vitals: Vital Signs Temp Pulse Resp BP Pulse Ox O2 Del Method 98.4 F 102 H 15 139/84 98 03/29/22 08:01 03/29/22 10:00 03/29/22 10:00 03/29/22 10:00 03/29/22 10:00 03/29/22 00:02 Period Temp Pulse Resp BP Sys/Tran Pulse Ox O2 Del Method O2 Flow Rate Last 24 Hr 98.0 F-98.4 F 88-133 0-22 137-175/77-103 90-98 Room Air-Room Air Intake and Output 03/29/22 03/29/22 03/29/22 03:59 11:59 19:59 Intake Total 220 1220 450 Output Total 550 725 400 Balance -330 495 50 Weight 115.394 kg Intake & Output: Intake & Output 03/29/22 03/29/22 03/29/22 03:59 11:59 19:59 Intake Total 220 1220 450 Output Total 550 725 400 Balance -330 495 50 Weight 115.394 kg Intake: IV 980 Sodium Chloride 0.9% 1,000 ml @ 928 75 mls/hr IV .[id number] [facility] Rx#: [id number] Vitamin B1 200 mg In Sodium 52 Chloride 0.9% 50 ml @ 50 mls/hr IV DAILY [facility] Rx#:[id number] Oral 220 240 450 Output: Void Amount 550 725 400 Other: Meal Breakfast Percent of Meal Consumed 100% Feeding Ability Assist with Tray Set Up Urine Appearance Clear Clear Clear Urine Color Dark Yellow Yellow Yellow Urine Odor Normal Stool Size Small Stool Color Brown Stool Consistency Formed OBJ DATA Labs CBC & Chem 7: 03/29/22 05:34 03/29/22 05:33 Labs: Abnormal Lab Results 03/29/22 03/29/22 03/28/22 05:34 05:33 16:04 WBC 3.5 L RBC 4.00 L Hgb 12.5 L Hct 38.1 L RDW 15.3 H Plt Count 84 L Lymph # (Auto) Platelet Estimate Decreased A RBC Morphology Abnormal A Anisocytosis 1+ A Chloride 94 L Anion Gap BUN Glucose 166 H Uric Acid 10.2 H Calcium 8.2 L Magnesium 1.5 L Total Bilirubin 1.1 H Direct Bilirubin 0.3 H GGT 136 H AST 71 H ALT 55 H Alkaline Phosphatase Lactate Dehydrogenase 232 H Globulin 1.9 L Urine Protein Urine Ketones Urine Occult Blood Urine Mucus Ethyl Alcohol g/dL 03/28/22 03/28/22 03/28/22 12:45 12:45 12:44 WBC 3.6 L RBC 4.44 L Hgb Hct RDW 14.9 H Plt Count 132 L Lymph # (Auto) 0.58 L Platelet Estimate RBC Morphology Anisocytosis Chloride 89 L Anion Gap 23.0 H BUN 5 L Glucose 154 H Uric Acid Calcium Magnesium Total Bilirubin Direct Bilirubin GGT AST 96 H ALT 70 H Alkaline Phosphatase 122 H Lactate Dehydrogenase Globulin Urine Protein 30 A Urine Ketones 40 A Urine Occult Blood Trace-lysed A Urine Mucus Few A Ethyl Alcohol g/dL 03/28/22 10:44 WBC RBC Hgb Hct RDW Plt Count Lymph # (Auto) Platelet Estimate RBC Morphology Anisocytosis Chloride Anion Gap BUN Glucose Uric Acid Calcium Magnesium Total Bilirubin Direct Bilirubin GGT AST ALT Alkaline Phosphatase Lactate Dehydrogenase Globulin Urine Protein Urine Ketones Urine Occult Blood Urine Mucus Ethyl Alcohol g/dL 0.176 H Meds: Medications Acetaminophen (Acetaminophen 325 Mg Tablet) 650 mg PO Q6HP PRN; Protocol PRN Reason: Per Pain Protocol/Fever > 101 Dextrose (Dextrose 50% 50 Ml Vial) 0 ml IV UD PRN PRN Reason: Per Sliding Scale Diagnostic Test (Pha) (Accu-Chek 1 Each Strip) 1 each FS ACHS [facility] Last Admin: 03/29/22 11:41 Dose: 1 each Diazepam (Diazepam 5 Mg Tablet) 10 mg PO Q8H [facility] Stop: 03/29/22 15:59 Last Admin: 03/29/22 07:52 Dose: 10 mg Diazepam (Diazepam 5 Mg Tablet) 5 mg PO Q8H [facility] Stop: 03/31/22 13:59 Diazepam (Diazepam 10 Mg/2 Ml Syringe) 10 mg IV UD PRN; Protocol PRN Reason: Alcohol Withdrawal/Assess CIWA Last Admin: 03/29/22 04:58 Dose: 10 mg Docusate Sodium (Docusate Sodium 100 Mg Capsule) 100 mg PO BID [facility] Last Admin: 03/29/22 08:42 Dose: 100 mg Folic Acid (Folic Acid 1 Mg Tablet) 1 mg PO DAILY [facility] Last Admin: 03/29/22 08:42 Dose: 1 mg Glucose (Dextrose 31 Gm Oral.Susp) 15 gm PO PRN PRN PRN Reason: Hypoglycemia Heparin Sodium (Porcine) (Heparin 5,000 Unit/Ml Vial) 5,000 unit SQ Q12 [facility] Last Admin: 03/29/22 10:03 Dose: 5,000 unit Sodium Chloride (Sodium Chloride 0.9%) 1,000 mls @ 75 mls/hr IV .[id number] [facility] Last Admin: 03/29/22 05:35 Dose: 75 mls/hr Thiamine HCl 200 mg/ Sodium (Chloride) 52 mls @ 50 mls/hr IV DAILY [facility] Stop: 04/02/22 10:03 Last Infusion: 03/29/22 10:31 Dose: Infused Insulin Human Lispro (Insulin Lispro 1 Unit/0.01 Ml Unit) 0 unit SQ ACHS [facility]; Protocol Last Admin: 03/29/22 12:43 Dose: 4 unit Iron Carb/Multivit/[place]/Folic Acid (Multivit,Ther Iron,Ca,Fa & Min 1 Tablet) 1 tab PO DAILY [facility] Last Admin: 03/29/22 08:42 Dose: 1 tab Lactulose (Lactulose 20 Gm/30 Ml Oral.[place]) 10 gm PO DAILYP PRN PRN Reason: Constipation Ondansetron HCl (Ondansetron 4 Mg/2 Ml Vial) 4 mg IV Q4HP PRN; Protocol PRN Reason: Nausea And Vomiting Last Admin: 03/28/22 20:16 Dose: 4 mg Pantoprazole Sodium (Pantoprazole 40 Mg Tablet) 40 mg PO HS [facility] Last Admin: 03/28/22 20:44 Dose: Not Given Promethazine HCl (Promethazine 25 Mg/Ml Vial) 12.5 mg IV Q4HP PRN PRN Reason: Nausea And Vomiting Last Admin: 03/29/22 08:10 Dose: 12.5 mg Senna (Sennosides 1 Tablet) 2 tab PO HSP PRN PRN Reason: Constipation Sodium Chloride (0.9 % Sodium Chloride 10 Ml Syringe) 10 ml IV Q8 [facility] Last Admin: 03/29/22 05:37 Dose: Not Given Sodium Chloride (0.9 % Sodium Chloride 10 Ml Syringe) 10 ml IV Q8 [facility] Last Admin: 03/29/22 05:37 Dose: Not Given Thiamine HCl (Thiamine 100 Mg Tablet) 100 mg PO DAILY [facility] A/P Narrative A/P Narrative: Assessment: 62 year old male with a history of severe alcohol use disorder complicated by alcohol withdrawal seizures, recurrent pancreatitis felt to be secondary to alcohol use, type 2 diabetes mellitus, hypertension, obstructive sleep apnea admitted for alcohol withdrawal. The patient has previously been treated with acamprosate and oral naltrexone for severe alcohol use disorder. #Alcohol withdrawal, moderate to high risk #History of alcohol withdrawal seizures #Pancytopenia likely secondary to alcohol use #Nonsevere alcoholic hepatitis #Type 2 diabetes mellitus #Hypertension #Hyperlipidemia #History of recurrent pancreatitis likely secondary to alcohol #Severe alcohol use disorder Plan -[facility] protocol with Valium IV as needed, monitor closely and escalate cares as needed. -Scheduled Valium PO for now with plans to taper off next several days. -Vitamin supplementation. -Discontinue IV fluid -Monitor and replace electrolytes as needed. -Monitor a CBC and LFTs. -Correction Humalog SSIlow. -Protonix p.o. daily. -Regular diet. -Seizure precautions. -PT and OT consult -DVT prophylaxis: Lovenox -CODE STATUS: Full -Disposition: Probably home when stable however the patient might be a candidate for inpatient treatment for severe alcohol use disorder if he is agreeable. Time Spent With Patient Time: Total time spent is greater than 50% in coordination of care (as documented) at patient's floor/unit and/or counseling patient: QUALITY VTE Deep Vein Thrombosis/Pulmonary Embolism Present on Admission: No
[2022-03-29] MEDS ORDERED: DIAZEPAM 5 MG TABLET PO SCH (14:00)
[2022-03-29] MEDS: ONDANSETRON 4 MG/2 ML VIAL IV PRN ×2 (16:51→21:51)
[2022-03-29] MEDS: PANTOPRAZOLE 40 MG TABLET PO SCH (21:37)
[2022-03-30] MEDS: DIAZEPAM 10 MG/2 ML SYRINGE IV PRN ×3 (02:35→15:08)
[2022-03-30] MEDS: PROMETHAZINE 25 MG/ML VIAL IV PRN (02:42)
[2022-03-30] MEDS: 0.9 % SODIUM CHLORIDE 10 ML SYRINGE IV SCH ×6 (05:57→20:42)
[2022-03-30 07:38] LABS: ALT/SGPT 58 U/L (<40); AST/SGOT 92 U/L (<40); Albumin 3.8 gm/dL (3.2-5.2); Albumin/Globulin Ratio 1.6 (1.0-2.3); Alkaline Phosphatase 108 U/L (39-117); Bilirubin,Direct 0.3 mg/dL (<0.3); Blood Urea Nitrogen 6 mg/dL (6-20); Calcium 8.8 mg/dL (8.6-10.4); Carbon Dioxide 24 mmol/L (22-30); Chloride 100 mmol/L (96-108); Globulin 2.4 gm/dL (2.2-3.7); Glomerular Filtration Rate 97; Glucose 290 mg/dL (70-105); Lactate Dehydrogenase 240 U/L (135-225); Phosphorous 3.2 mg/dL (2.5-4.5); Triglycerides 169 mg/dL (<150); Uric Acid 6.3 mg/dL (2.5-8.0)
[2022-03-30 08:19] LABS: Hematocrit 38.4 % (40.1-51.0); Hemoglobin 12.6 g/dL (13.7-17.5); Mean Cell Volume 96.2 fL (80.0-100.0); Mean Corpuscular HGB Conc 32.8 g/dL (31.0-36.0); Mean Platelet Volume 9.9 fL (8.8-12.5); Platelet Count 75 K/mcL (140-440); RBC 3.99 M/mcL (4.63-6.08); Red Cell Distribution Width 14.9 % (11.5-14.5)
[2022-03-30] MEDS: ONDANSETRON 4 MG/2 ML VIAL IV PRN ×2 (08:30→12:28)
[2022-03-30] MEDS: INSULIN LISPRO 1 UNIT/0.01 ML UNIT SQ SCH ×4 (08:30→20:42)
[2022-03-30] MEDS: ENOXAPARIN 40 MG/0.4 ML SYRINGE SQ SCH (08:31)
[2022-03-30] MEDS: MULTIVIT,THER IRON,CA,FA & MIN 1 TABLET PO SCH (08:31)
[2022-03-30] MEDS: FOLIC ACID 1 MG TABLET PO SCH (08:31)
[2022-03-30] MEDS: DOCUSATE SODIUM 100 MG CAPSULE PO SCH ×2 (08:43→20:41)
[2022-03-30 08:52] LABS: Band Neutrophils % 4 % (0-10); Eosinophils % (Manual) 6 % (0-7); Lymphocytes % 14 % (15-49); Monocytes % (Manual) 13 % (1-12); Platelet Estimate DECREASED (Normal); RBC Morphology NORMAL (Normal); Reactive Lymphocytes 3 % (0-2); Segmented Neutrophils % 60 % (38-78)
[2022-03-30] MEDS: THIAMINE 200 MG in 0.9 % SODIUM CHLORIDE 50 ML IV SCH (12:16)
[2022-03-30] MEDS: LISINOPRIL 10 MG TABLET PO SCH (13:16)
--- NOTE | 2022-03-30 14:48 | Internal Med Progress Note ---
SUBJECTIVE Subjective Patient information: Note initiated : 03/30/22 at 2:43 pm Service Date, if different from initiated Date: [] Patient: Miguel A Dumas 62 y/o M admitted on 03/28/22 for Alcohol Withdrawal. Chief Complaint: [] Interval history: Mr. Dumas is a 62 year old male with a history of severe alcohol use disorder complicated by alcohol withdrawal seizures, recurrent pancreatitis felt to be secondary to alcohol use, type 2 diabetes mellitus, hypertension, obstructive sleep apnea who presented to the emergency department with concerns of alcohol withdrawal. The patient says that he has been drinking half a gallon of vodka daily for about 3 weeks. He says that when he tries to reduce his alcohol intake he develops alcohol withdrawal symptoms. Additionally, the patient has experienced epigastric abdominal pain and has had poor nutritional intake over the last few weeks. Hospital medicine was consulted for admission for alcohol withdrawal. 03/29 No significant events overnight, CIWA score this morning was 8. Continues on scheduled Valium and as needed Valium per CIWA scores. Increased thiamine supplementation dose. Replaced magnesium. 03/30 Blood pressure elevated overnight, started lisinopril. CIWA scores modestly elevated. Continue CIWA protocol with Valium as needed. Discontinued scheduled p.o. Valium yesterday. Physical exam Head: Atraumatic, normal inspection. Eyes: normal appearance, no scleral icterus. Neck: full ROM Respiratory: no respiratory distress. Cardiovascular: normal rate and rhythm, S1, S2. GI/Abdominal: soft, no tenderness, no guarding Extremities: Minimal bilateral lower extremity edema, full range of motion, nontender. Neurological: CN II-XII intact, intact motor, intact sensation. Psychiatric: Normal mood Skin: warm, normal color Constitutional Vitals: Vital Signs Temp Pulse Resp BP Pulse Ox O2 Del Method 97.9 F 87 11 L 152/90 93 03/30/22 12:01 03/30/22 08:00 03/30/22 12:01 03/30/22 12:01 03/30/22 12:01 03/30/22 04:01 Period Temp Pulse Resp BP Sys/Tran Pulse Ox O2 Del Method O2 Flow Rate Last 24 Hr 97.1 F-98.3 F 81-96 11-25 127-174/68-106 93-99 Room Air-Room Air Intake and Output 03/30/22 03/30/2222 03:59 11:59 19:59 Intake Total 100 700 Output Total 1200 1075 Balance -1100 -375 Weight 115.076 kg Intake & Output: Intake & Output 03/30/22 03/30/22 03/30/22 03:59 11:59 19:59 Intake Total 100 700 Output Total 1200 1075 Balance -1100 -375 Weight 115.076 kg Intake: Oral 100 700 Output: Void Amount 1200 1075 Other: Urine Appearance Clear Clear Urine Color Yellow Bright Yellow Urine Odor Normal Normal Stool Size Moderate Stool Color Brown Stool Consistency Formed Cylindrical # Bowel Movements 1 OBJ DATA Labs CBC & Chem 7: 03/30/22 07:34 03/30/22 05:53 Labs: Abnormal Lab Results 03/30/22 03/30/22 03/29/22 07:34 05:53 05:34 WBC 3.0 L 3.5 L RBC 3.99 L 4.00 L Hgb 12.6 L 12.5 L Hct 38.4 L 38.1 L RDW 14.9 H 15.3 H Plt Count 75 L 84 L Lymph # (Auto) Lymphocytes % 14 L Monocytes % (Manual) 13 H Reactive Lymphocytes 3 H Platelet Estimate Decreased A Decreased A RBC Morphology Abnormal A Anisocytosis 1+ A Chloride Anion Gap BUN Glucose 290 H Uric Acid Calcium Magnesium Total Bilirubin Direct Bilirubin 0.3 H GGT 145 H AST 92 H ALT 58 H Alkaline Phosphatase Lactate Dehydrogenase 240 H Globulin Triglycerides 169 H Urine Protein Urine Ketones Urine Occult Blood Urine Mucus Ethyl Alcohol g/dL 03/29/22 03/28/22 03/28/22 05:33 16:04 12:45 WBC RBC Hgb Hct RDW Plt Count Lymph # (Auto) Lymphocytes % Monocytes % (Manual) Reactive Lymphocytes Platelet Estimate RBC Morphology Anisocytosis Chloride 94 L 89 L Anion Gap 23.0 H BUN 5 L Glucose 166 H 154 H Uric Acid 10.2 H Calcium 8.2 L Magnesium 1.5 L Total Bilirubin 1.1 H Direct Bilirubin 0.3 H GGT 136 H AST 71 H 96 H ALT 55 H 70 H Alkaline Phosphatase 122 H Lactate Dehydrogenase 232 H Globulin 1.9 L Triglycerides Urine Protein Urine Ketones Urine Occult Blood Urine Mucus Ethyl Alcohol g/dL 03/28/22 03/28/22 03/28/22 12:45 12:44 10:44 WBC 3.6 L RBC 4.44 L Hgb Hct RDW 14.9 H Plt Count 132 L Lymph # (Auto) 0.58 L Lymphocytes % Monocytes % (Manual) Reactive Lymphocytes Platelet Estimate RBC Morphology Anisocytosis Chloride Anion Gap BUN Glucose Uric Acid Calcium Magnesium Total Bilirubin Direct Bilirubin GGT AST ALT Alkaline Phosphatase Lactate Dehydrogenase Globulin Triglycerides Urine Protein 30 A Urine Ketones 40 A Urine Occult Blood Trace-lysed A Urine Mucus Few A Ethyl Alcohol g/dL 0.176 H Meds: Medications Acetaminophen (Acetaminophen 325 Mg Tablet) 650 mg PO Q6HP PRN; Protocol PRN Reason: Per Pain Protocol/Fever > 101 Dextrose (Dextrose 50% 50 Ml Vial) 0 ml IV UD PRN PRN Reason: Per Sliding Scale Diagnostic Test (Pha) (Accu-Chek 1 Each Strip) 1 each FS ACHS [facility] Last Admin: 03/30/22 12:16 Dose: 1 each Diazepam (Diazepam 10 Mg/2 Ml Syringe) 10 mg IV UD PRN; Protocol PRN Reason: Alcohol Withdrawal/Assess CIWA Last Admin: 03/30/22 08:31 Dose: 7.5 mg Docusate Sodium (Docusate Sodium 100 Mg Capsule) 100 mg PO BID [facility] Last Admin: 03/30/22 08:43 Dose: 100 mg Enoxaparin Sodium (Enoxaparin 40 Mg/0.4 Ml Syringe) 40 mg SQ DAILY [facility] Last Admin: 03/30/22 08:31 Dose: 40 mg Folic Acid (Folic Acid 1 Mg Tablet) 1 mg PO DAILY [facility] Last Admin: 03/30/22 08:31 Dose: 1 mg Glucose (Dextrose 31 Gm Oral.Susp) 15 gm PO PRN PRN PRN Reason: Hypoglycemia Thiamine HCl 200 mg/ Sodium (Chloride) 52 mls @ 50 mls/hr IV DAILY [facility] Stop: 04/02/22 10:03 Last Admin: 03/30/22 12:16 Dose: 50 mls/hr Insulin Human Lispro (Insulin Lispro 1 Unit/0.01 Ml Unit) 0 unit SQ ACHS [facility]; Protocol Last Admin: 03/30/22 12:16 Dose: 6 unit Iron Carb/Multivit/[place]/Folic Acid (Multivit,Ther Iron,Ca,Fa & Min 1 Tablet) 1 tab PO DAILY [facility] Last Admin: 03/30/22 08:31 Dose: 1 tab Lactulose (Lactulose 20 Gm/30 Ml Oral.Milagro) 10 gm PO DAILYP PRN PRN Reason: Constipation Lisinopril (Lisinopril 10 Mg Tablet) 10 mg PO DAILY [facility] Last Admin: 03/30/22 13:16 Dose: 10 mg Ondansetron HCl (Ondansetron 4 Mg/2 Ml Vial) 4 mg IV Q4HP PRN; Protocol PRN Reason: Nausea And Vomiting Last Admin: 03/30/22 08:30 Dose: 4 mg Pantoprazole Sodium (Pantoprazole 40 Mg Tablet) 40 mg PO HS [facility] Last Admin: 03/29/22 21:37 Dose: 40 mg Promethazine HCl (Promethazine 25 Mg/Ml Vial) 12.5 mg IV Q4HP PRN PRN Reason: Nausea And Vomiting Last Admin: 03/30/22 02:42 Dose: 12.5 mg Senna (Sennosides 1 Tablet) 2 tab PO HSP PRN PRN Reason: Constipation Sodium Chloride (0.9 % Sodium Chloride 10 Ml Syringe) 10 ml IV Q8 [facility] Last Admin: 03/30/22 05:57 Dose: 10 ml Sodium Chloride (0.9 % Sodium Chloride 10 Ml Syringe) 10 ml IV Q8 [facility] Last Admin: 03/30/22 05:57 Dose: Not Given Thiamine HCl (Thiamine 100 Mg Tablet) 100 mg PO DAILY [facility] A/P Narrative A/P Narrative: Assessment: 62 year old male with a history of severe alcohol use disorder complicated by alcohol withdrawal seizures, recurrent pancreatitis felt to be secondary to alcohol use, type 2 diabetes mellitus, hypertension, obstructive sleep apnea admitted for alcohol withdrawal. The patient has previously been treated with acamprosate and oral naltrexone for severe alcohol use disorder. #Alcohol withdrawal, resolving #History of alcohol withdrawal seizures #Pancytopenia likely secondary to alcohol use #Nonsevere alcoholic hepatitis #Type 2 diabetes mellitus #Hypertension #Hyperlipidemia #History of recurrent pancreatitis likely secondary to alcohol #Severe alcohol use disorder Plan -CIWA protocol with Valium IV as needed, monitor closely and escalate cares as needed. -Discontinued scheduled oral Valium. -Vitamin supplementation. -Monitor and replace electrolytes as needed. -Monitor a CBC and LFTs. -Start lisinopril 10 mg daily. -Correction Humalog SSIlow. -Protonix p.o. daily. -Consistent carbohydrate diet. -Seizure precautions. -PT and OT consult -DVT prophylaxis: Lovenox -CODE STATUS: Full -Disposition: To be determined. Time Spent With Patient Time: Total time spent is greater than 50% in coordination of care (as documented) at patient's floor/unit and/or counseling patient: QUALITY VTE Deep Vein Thrombosis/Pulmonary Embolism Present on Admission: No
[2022-03-30] MEDS: PANTOPRAZOLE 40 MG TABLET PO SCH (20:42)
[2022-03-31] MEDS: DIAZEPAM 10 MG/2 ML SYRINGE IV PRN (00:10)
[2022-03-31] MEDS: 0.9 % SODIUM CHLORIDE 10 ML SYRINGE IV SCH ×6 (04:39→20:12)
[2022-03-31 06:50] LABS: Hematocrit 45.5 % (40.1-51.0); Hemoglobin 14.5 g/dL (13.7-17.5); Mean Cell Volume 96.6 fL (80.0-100.0); Mean Corpuscular HGB Conc 31.9 g/dL (31.0-36.0); Mean Platelet Volume 10.5 fL (8.8-12.5); Platelet Count 77 K/mcL (140-440); RBC 4.71 M/mcL (4.63-6.08); Red Cell Distribution Width 14.6 % (11.5-14.5); WBC 3.9 K/mcL (4.5-11.0)
[2022-03-31 06:57] LABS: ALT/SGPT 94 U/L (<40); AST/SGOT 162 U/L (<40); Albumin 4.2 gm/dL (3.2-5.2); Albumin/Globulin Ratio 1.5 (1.0-2.3); Alkaline Phosphatase 124 U/L (39-117); Bilirubin,Direct 0.3 mg/dL (<0.3); Blood Urea Nitrogen 7 mg/dL (6-20); Calcium 9.3 mg/dL (8.6-10.4); Carbon Dioxide 22 mmol/L (22-30); Chloride 97 mmol/L (96-108); Globulin 2.8 gm/dL (2.2-3.7); Glomerular Filtration Rate 97; Glucose 299 mg/dL (70-105); Lactate Dehydrogenase 314 U/L (135-225); Phosphorous 3.4 mg/dL (2.5-4.5); Triglycerides 151 mg/dL (<150); Uric Acid 4.3 mg/dL (2.5-8.0)
[2022-03-31] MEDS: ONDANSETRON 4 MG/2 ML VIAL IV PRN (07:23)
[2022-03-31 07:51] LABS: Anisocytosis OCC (None Seen); Band Neutrophils % 2 % (0-10); Eosinophils % (Manual) 7 % (0-7); Lymphocytes % 11 % (15-49); Monocytes % (Manual) 8 % (1-12); Platelet Estimate DECREASED (Normal); RBC Morphology ABNORMAL (Normal); Reactive Lymphocytes 1 % (0-2); Segmented Neutrophils % 71 % (38-78)
[2022-03-31] MEDS: INSULIN LISPRO 1 UNIT/0.01 ML UNIT SQ SCH ×4 (08:31→20:11)
[2022-03-31] MEDS ORDERED: DIAZEPAM 5 MG TABLET PO PRN (08:40)
[2022-03-31] MEDS: FOLIC ACID 1 MG TABLET PO SCH (09:58)
[2022-03-31] MEDS: THIAMINE 200 MG in 0.9 % SODIUM CHLORIDE 50 ML IV SCH (09:58)
[2022-03-31] MEDS: ENOXAPARIN 40 MG/0.4 ML SYRINGE SQ SCH (09:58)
[2022-03-31] MEDS: DOCUSATE SODIUM 100 MG CAPSULE PO SCH ×2 (09:58→20:12)
[2022-03-31] MEDS: LISINOPRIL 10 MG TABLET PO SCH (09:58)
[2022-03-31] MEDS: MULTIVIT,THER IRON,CA,FA & MIN 1 TABLET PO SCH (09:58)
--- NOTE | 2022-03-31 10:44 | Internal Med Progress Note ---
SUBJECTIVE Subjective Patient information: Note initiated : 03/31/22 at 10:40 am Service Date, if different from initiated Date: [] Patient: Miguel A Dumas 62 y/o M admitted on 03/28/22 for Alcohol Withdrawal. Chief Complaint: [] Interval history: Mr. Dumas is a 62 year old male with a history of severe alcohol use disorder complicated by alcohol withdrawal seizures, recurrent pancreatitis felt to be secondary to alcohol use, type 2 diabetes mellitus, hypertension, obstructive sleep apnea who presented to the emergency department with concerns of alcohol withdrawal. The patient says that he has been drinking half a gallon of vodka daily for about 3 weeks. He says that when he tries to reduce his alcohol intake he develops alcohol withdrawal symptoms. Additionally, the patient has experienced epigastric abdominal pain and has had poor nutritional intake over the last few weeks. Hospital medicine was consulted for admission for alcohol withdrawal. 03/29 No significant events overnight, CIWA score this morning was 8. Continues on scheduled Valium and as needed Valium per CIWA scores. Increased thiamine supplementation dose. Replaced magnesium. 03/30 Blood pressure elevated overnight, started lisinopril. CIWA scores modestly elevated. Continue CIWA protocol with Valium as needed. Discontinued scheduled p.o. Valium yesterday. 03/31 Vitals stable overnight, withdrawal symptoms improved. Started as needed oral Valium per CIWA protocol, discontinued as needed IV Valium. Patient strength seems to be improving with physical therapy. Patient is hopeful to discharge to inpatient rehab in the coming days. Physical exam Head: Atraumatic, normal inspection. Eyes: normal appearance, no scleral icterus. Neck: full ROM Respiratory: no respiratory distress. Cardiovascular: normal rate and rhythm, S1, S2. GI/Abdominal: soft, no tenderness, no guarding Extremities: Minimal bilateral lower extremity edema, full range of motion, nontender. Neurological: CN II-XII intact, intact motor, intact sensation. Psychiatric: Normal mood Skin: warm, normal color Constitutional Vitals: Vital Signs Temp Pulse Resp BP Pulse Ox O2 Del Method O2 Flow Rate 97.6 F 85 15 146/89 99 2 03/31/22 08:01 03/31/22 02:00 03/31/22 10:01 03/31/22 10:01 03/31/22 08:01 03/31/22 10:01 03/31/22 04:01 Period Temp Pulse Resp BP Sys/Tran Pulse Ox O2 Del Method O2 Flow Rate Last 24 Hr 97.6 F-98.2 F 85-103 11-28 105-174/67-121 93-100 Room Air-Room Air 2 Intake and Output 03/30/22 03/31/22 03/31/22 19:59 03:59 11:59 Intake Total 932 1105 Output Total 825 625 400 Balance 107 -625 705 Weight 113.852 kg Intake & Output: Intake & Output 03/30/22 03/31/22 03/31/22 19:59 03:59 11:59 Intake Total 932 1105 Output Total 825 625 400 Balance 107 -625 705 Weight 113.852 kg Intake: IV 52 Vitamin B1 200 mg In Sodium 52 Chloride 0.9% 50 ml @ 50 mls/hr IV DAILY [facility] Rx#:[id number] Oral 880 1105 Output: Urine Catheter Amount 325 Void Amount 500 625 400 Other: Meal Breakfast Percent of Meal Consumed 100% Feeding Ability Independent Urine Appearance Clear Clear Clear Urine Color Light Vonnie Light Vonnie Light Vonnie OBJ DATA Labs CBC & Chem 7: 03/31/22 05:22 03/31/22 05:21 Labs: Abnormal Lab Results 03/31/22 03/31/22 03/30/22 05:22 05:21 07:34 WBC 3.9 L 3.0 L RBC 3.99 L Hgb 12.6 L Hct 38.4 L RDW 14.6 H 14.9 H Plt Count 77 L 75 L Lymph # (Auto) Lymphocytes % 11 L 14 L Monocytes % (Manual) 13 H Reactive Lymphocytes 3 H Platelet Estimate Decreased A Decreased A RBC Morphology Abnormal A Anisocytosis Occ A Chloride Anion Gap BUN Glucose 299 H Uric Acid Calcium Magnesium Total Bilirubin Direct Bilirubin 0.3 H GGT 192 H AST 162 H ALT 94 H Alkaline Phosphatase 124 H Lactate Dehydrogenase 314 H Globulin Triglycerides 151 H Urine Protein Urine Ketones Urine Occult Blood Urine Mucus Ethyl Alcohol g/dL 03/30/22 03/29/22 03/29/22 05:53 05:34 05:33 WBC 3.5 L RBC 4.00 L Hgb 12.5 L Hct 38.1 L RDW 15.3 H Plt Count 84 L Lymph # (Auto) Lymphocytes % Monocytes % (Manual) Reactive Lymphocytes Platelet Estimate Decreased A RBC Morphology Abnormal A Anisocytosis 1+ A Chloride 94 L Anion Gap BUN Glucose 290 H 166 H Uric Acid 10.2 H Calcium 8.2 L Magnesium Total Bilirubin 1.1 H Direct Bilirubin 0.3 H 0.3 H GGT 145 H 136 H AST 92 H 71 H ALT 58 H 55 H Alkaline Phosphatase Lactate Dehydrogenase 240 H 232 H Globulin 1.9 L Triglycerides 169 H Urine Protein Urine Ketones Urine Occult Blood Urine Mucus Ethyl Alcohol g/dL 03/28/22 03/28/22 03/28/22 16:04 12:45 12:45 WBC 3.6 L RBC 4.44 L Hgb Hct RDW 14.9 H Plt Count 132 L Lymph # (Auto) 0.58 L Lymphocytes % Monocytes % (Manual) Reactive Lymphocytes Platelet Estimate RBC Morphology Anisocytosis Chloride 89 L Anion Gap 23.0 H BUN 5 L Glucose 154 H Uric Acid Calcium Magnesium 1.5 L Total Bilirubin Direct Bilirubin GGT AST 96 H ALT 70 H Alkaline Phosphatase 122 H Lactate Dehydrogenase Globulin Triglycerides Urine Protein Urine Ketones Urine Occult Blood Urine Mucus Ethyl Alcohol g/dL 03/28/22 03/28/22 12:44 10:44 WBC RBC Hgb Hct RDW Plt Count Lymph # (Auto) Lymphocytes % Monocytes % (Manual) Reactive Lymphocytes Platelet Estimate RBC Morphology Anisocytosis Chloride Anion Gap BUN Glucose Uric Acid Calcium Magnesium Total Bilirubin Direct Bilirubin GGT AST ALT Alkaline Phosphatase Lactate Dehydrogenase Globulin Triglycerides Urine Protein 30 A Urine Ketones 40 A Urine Occult Blood Trace-lysed A Urine Mucus Few A Ethyl Alcohol g/dL 0.176 H Meds: Medications Acetaminophen (Acetaminophen 325 Mg Tablet) 650 mg PO Q6HP PRN; Protocol PRN Reason: Per Pain Protocol/Fever > 101 Dextrose (Dextrose 50% 50 Ml Vial) 0 ml IV UD PRN PRN Reason: Per Sliding Scale Diagnostic Test (Pha) (Accu-Chek 1 Each Strip) 1 each FS ACHS [facility] Last Admin: 03/31/22 07:23 Dose: 1 each Diazepam (Diazepam 5 Mg Tablet) 5 mg PO Q1HP PRN PRN Reason: Anxiety/Agitation Last Admin: 03/31/22 09:59 Dose: 5 mg Docusate Sodium (Docusate Sodium 100 Mg Capsule) 100 mg PO BID [facility] Last Admin: 03/31/22 09:58 Dose: 100 mg Enoxaparin Sodium (Enoxaparin 40 Mg/0.4 Ml Syringe) 40 mg SQ DAILY [facility] Last Admin: 03/31/22 09:58 Dose: 40 mg Folic Acid (Folic Acid 1 Mg Tablet) 1 mg PO DAILY [facility] Last Admin: 03/31/22 09:58 Dose: 1 mg Glucose (Dextrose 31 Gm Oral.Susp) 15 gm PO PRN PRN PRN Reason: Hypoglycemia Thiamine HCl 200 mg/ Sodium (Chloride) 52 mls @ 50 mls/hr IV DAILY [facility] Stop: 04/02/22 10:03 Last Admin: 03/31/22 09:58 Dose: 50 mls/hr Insulin Human Lispro (Insulin Lispro 1 Unit/0.01 Ml Unit) 0 unit SQ ACHS [facility]; Protocol Last Admin: 03/31/22 08:31 Dose: 2 unit Iron Carb/Multivit/[place]/Folic Acid (Multivit,Ther Iron,Ca,Fa & Min 1 Tablet) 1 tab PO DAILY [facility] Last Admin: 03/31/22 09:58 Dose: 1 tab Lactulose (Lactulose 20 Gm/30 Ml Oral.Milagro) 10 gm PO DAILYP PRN PRN Reason: Constipation Lisinopril (Lisinopril 10 Mg Tablet) 10 mg PO DAILY [facility] Last Admin: 03/31/22 09:58 Dose: 10 mg Ondansetron HCl (Ondansetron 4 Mg/2 Ml Vial) 4 mg IV Q4HP PRN; Protocol PRN Reason: Nausea And Vomiting Last Admin: 03/31/22 07:23 Dose: 4 mg Pantoprazole Sodium (Pantoprazole 40 Mg Tablet) 40 mg PO HS [facility] Last Admin: 03/30/22 20:42 Dose: 40 mg Promethazine HCl (Promethazine 25 Mg/Ml Vial) 12.5 mg IV Q4HP PRN PRN Reason: Nausea And Vomiting Last Admin: 03/30/22 02:42 Dose: 12.5 mg Senna (Sennosides 1 Tablet) 2 tab PO HSP PRN PRN Reason: Constipation Sodium Chloride (0.9 % Sodium Chloride 10 Ml Syringe) 10 ml IV Q8 [facility] Last Admin: 03/31/22 05:45 Dose: 10 ml Sodium Chloride (0.9 % Sodium Chloride 10 Ml Syringe) 10 ml IV Q8 [facility] Last Admin: 03/31/22 04:39 Dose: Not Given Thiamine HCl (Thiamine 100 Mg Tablet) 100 mg PO DAILY [facility] A/P Narrative A/P Narrative: Assessment: 62 year old male with a history of severe alcohol use disorder complicated by alcohol withdrawal seizures, recurrent pancreatitis felt to be secondary to alcohol use, type 2 diabetes mellitus, hypertension, obstructive sleep apnea admitted for alcohol withdrawal. The patient has previously been treated with acamprosate and oral naltrexone for severe alcohol use disorder. #Alcohol withdrawal, resolving #History of alcohol withdrawal seizures #Pancytopenia likely secondary to alcohol use #Nonsevere alcoholic hepatitis #Type 2 diabetes mellitus #Hypertension #Hyperlipidemia #History of recurrent pancreatitis likely secondary to alcohol #Severe alcohol use disorder Plan -CIWA protocol with Valium IV as needed, monitor closely and escalate cares as needed. -Discontinued scheduled oral Valium. -Vitamin supplementation. -Monitor and replace electrolytes as needed. -Monitor a CBC and LFTs. -Continue lisinopril 10 mg daily. -Correction Humalog SSIlow. -Protonix p.o. daily. -Consistent carbohydrate diet. -Seizure precautions. -PT and OT consult -DVT prophylaxis: Lovenox -CODE STATUS: Full -Disposition: Probably inpatient rehab for alcohol use disorder. Inpatient rehab is medically necessary given the potentially life-threatening nature of the patient's severe alcohol use disorder. At discharge, the patient will be medically cleared for inpatient rehab for alcohol use disorder. Time Spent With Patient Time: Total time spent is greater than 50% in coordination of care (as documented) at patient's floor/unit and/or counseling patient: QUALITY VTE Deep Vein Thrombosis/Pulmonary Embolism Present on Admission: No
[2022-03-31] MEDS: PANTOPRAZOLE 40 MG TABLET PO SCH (20:12)
[2022-04-01] MEDS: 0.9 % SODIUM CHLORIDE 10 ML SYRINGE IV SCH ×6 (06:02→21:42)
[2022-04-01 07:04] LABS: Hematocrit 45.4 % (40.1-51.0); Hemoglobin 15.3 g/dL (13.7-17.5); Mean Cell Volume 94.2 fL (80.0-100.0); Mean Corpuscular HGB Conc 33.7 g/dL (31.0-36.0); Mean Platelet Volume 10.7 fL (8.8-12.5); Platelet Count 81 K/mcL (140-440); RBC 4.82 M/mcL (4.63-6.08); Red Cell Distribution Width 14.9 % (11.5-14.5); WBC 4.1 K/mcL (4.5-11.0)
[2022-04-01 07:16] LABS: ALT/SGPT 121 U/L (<40); AST/SGOT 179 U/L (<40); Albumin/Globulin Ratio 1.4 (1.0-2.3); Alkaline Phosphatase 116 U/L (39-117); Bilirubin,Direct 0.3 mg/dL (<0.3); Bilirubin,Total 0.9 mg/dL (0.1-1.0); Carbon Dioxide 20 mmol/L (22-30); Chloride 98 mmol/L (96-108); Globulin 2.8 gm/dL (2.2-3.7); Glomerular Filtration Rate 102; Glucose 259 mg/dL (70-105); Lactate Dehydrogenase 334 U/L (135-225); Phosphorous 4.4 mg/dL (2.5-4.5); Triglycerides 135 mg/dL (<150); Uric Acid 3.9 mg/dL (2.5-8.0)
[2022-04-01 07:22] LABS: INR 0.8 (0.9-1.1); Prothrombin Time 11.9 sec (11.9-14.5)
[2022-04-01] MEDS: INSULIN LISPRO 1 UNIT/0.01 ML UNIT SQ SCH ×4 (08:23→20:32)
[2022-04-01] MEDS: ENOXAPARIN 40 MG/0.4 ML SYRINGE SQ SCH (08:23)
[2022-04-01 08:26] LABS: Anisocytosis OCC (None Seen); Eosinophils % (Manual) 4 % (0-7); Lymphocytes % 14 % (15-49); Monocytes % (Manual) 7 % (1-12); Platelet Estimate NORMAL (Normal); RBC Morphology ABNORMAL (Normal); Reactive Lymphocytes 4 % (0-2); Segmented Neutrophils % 71 % (38-78)
[2022-04-01] MEDS: LISINOPRIL 10 MG TABLET PO SCH (08:27)
[2022-04-01] MEDS: MULTIVIT,THER IRON,CA,FA & MIN 1 TABLET PO SCH (08:28)
[2022-04-01] MEDS: DOCUSATE SODIUM 100 MG CAPSULE PO SCH ×2 (08:28→20:32)
[2022-04-01] MEDS: FOLIC ACID 1 MG TABLET PO SCH (08:28)
[2022-04-01] MEDS: THIAMINE 200 MG in 0.9 % SODIUM CHLORIDE 50 ML IV SCH (10:57)
--- NOTE | 2022-04-01 11:52 | Internal Med Progress Note ---
SUBJECTIVE Subjective Patient information: Note initiated : 04/01/22 at 11:50 am Service Date, if different from initiated Date: [] Patient: Miguel A Dumas 62 y/o M admitted on 03/28/22 for Alcohol Withdrawal. Chief Complaint: [] Interval history: Mr. Dumas is a 62 year old male with a history of severe alcohol use disorder complicated by alcohol withdrawal seizures, recurrent pancreatitis felt to be secondary to alcohol use, type 2 diabetes mellitus, hypertension, obstructive sleep apnea who presented to the emergency department with concerns of alcohol withdrawal. The patient says that he has been drinking half a gallon of vodka daily for about 3 weeks. He says that when he tries to reduce his alcohol intake he develops alcohol withdrawal symptoms. Additionally, the patient has experienced epigastric abdominal pain and has had poor nutritional intake over the last few weeks. Hospital medicine was consulted for admission for alcohol withdrawal. 03/29 No significant events overnight, CIWA score this morning was 8. Continues on scheduled Valium and as needed Valium per CIWA scores. Increased thiamine supplementation dose. Replaced magnesium. 03/30 Blood pressure elevated overnight, started lisinopril. CIWA scores modestly elevated. Continue CIWA protocol with Valium as needed. Discontinued scheduled p.o. Valium yesterday. 03/31 Vitals stable overnight, withdrawal symptoms improved. Started as needed oral Valium per CIWA protocol, discontinued as needed IV Valium. Patient strength seems to be improving with physical therapy. Patient is hopeful to discharge to inpatient rehab in the coming days. 04/01 Stable overnight, has a good appetite. Withdrawal appears to be resolving, the patient is still weak but getting stronger. Patient was tachycardic with ambulation, EKG showed sinus tachycardia. Transfer to [facility]. Physical exam Head: Atraumatic, normal inspection. Eyes: normal appearance, no scleral icterus. Neck: full ROM Respiratory: no respiratory distress. Cardiovascular: Regular tachycardia, S1, S2. GI/Abdominal: soft, no tenderness, no guarding Extremities: Minimal bilateral lower extremity edema, full range of motion, nontender. Neurological: CN II-XII intact, intact motor, intact sensation. Psychiatric: Normal mood Skin: warm, normal color Constitutional Vitals: Vital Signs Temp Pulse Resp BP Pulse Ox O2 Del Method O2 Flow Rate 97.4 F 87 19 128/82 95 2 04/01/22 08:00 04/01/22 04:01 04/01/22 10:00 04/01/22 10:00 04/01/22 10:00 04/01/22 08:00 03/31/22 04:01 Period Temp Pulse Resp BP Sys/Tran Pulse Ox O2 Del Method O2 Flow Rate Last 24 Hr 97.3 F-98.4 F 86-101 14-24 123-163/82-119 92-100 Room Air-Room Air Intake and Output 03/31/22 04/01/22 04/01/22 19:59 03:59 11:59 Intake Total 615 200 460 Output Total 750 500 Balance 615 -550 -40 Weight 113.534 kg Intake & Output: Intake & Output 03/31/22 04/01/22 04/01/22 19:59 03:59 11:59 Intake Total 615 200 460 Output Total 750 500 Balance 615 -550 -40 Weight 113.534 kg Intake: Oral 615 200 460 Output: Void Amount 750 500 Other: Meal Lunch Breakfast Percent of Meal Consumed 100% 100% Feeding Ability Independent Independent Urine Appearance Clear Clear Urine Color Pale Dark Yellow OBJ DATA Labs CBC & Chem 7: 04/01/22 05:39 04/01/22 05:38 Labs: Abnormal Lab Results 04/01/22 04/01/22 04/01/22 05:39 05:38 05:38 WBC 4.1 L RBC Hgb Hct RDW 14.9 H Plt Count 81 L Lymphocytes % 14 L Monocytes % (Manual) Reactive Lymphocytes 4 H Platelet Estimate RBC Morphology Abnormal A Anisocytosis Occ A INR 0.8 L Carbon Dioxide 20 L Glucose 259 H Direct Bilirubin 0.3 H GGT 179 H AST 179 H ALT 121 H Alkaline Phosphatase Lactate Dehydrogenase 334 H Triglycerides 03/31/22 03/31/22 03/30/22 05:22 05:21 07:34 WBC 3.9 L 3.0 L RBC 3.99 L Hgb 12.6 L Hct 38.4 L RDW 14.6 H 14.9 H Plt Count 77 L 75 L Lymphocytes % 11 L 14 L Monocytes % (Manual) 13 H Reactive Lymphocytes 3 H Platelet Estimate Decreased A Decreased A RBC Morphology Abnormal A Anisocytosis Occ A INR Carbon Dioxide Glucose 299 H Direct Bilirubin 0.3 H GGT 192 H AST 162 H ALT 94 H Alkaline Phosphatase 124 H Lactate Dehydrogenase 314 H Triglycerides 151 H 03/30/22 05:53 WBC RBC Hgb Hct RDW Plt Count Lymphocytes % Monocytes % (Manual) Reactive Lymphocytes Platelet Estimate RBC Morphology Anisocytosis INR Carbon Dioxide Glucose 290 H Direct Bilirubin 0.3 H GGT 145 H AST 92 H ALT 58 H Alkaline Phosphatase Lactate Dehydrogenase 240 H Triglycerides 169 H Meds: Medications Acetaminophen (Acetaminophen 325 Mg Tablet) 650 mg PO Q6HP PRN; Protocol PRN Reason: Per Pain Protocol/Fever > 101 Dextrose (Dextrose 50% 50 Ml Vial) 0 ml IV UD PRN PRN Reason: Per Sliding Scale Diagnostic Test (Pha) (Accu-Chek 1 Each Strip) 1 each FS ACHS [facility] Last Admin: 04/01/22 08:23 Dose: 1 each Diazepam (Diazepam 5 Mg Tablet) 5 mg PO Q1HP PRN PRN Reason: Anxiety/Agitation Last Admin: 03/31/22 09:59 Dose: 5 mg Docusate Sodium (Docusate Sodium 100 Mg Capsule) 100 mg PO BID [facility] Last Admin: 04/01/22 08:28 Dose: 100 mg Enoxaparin Sodium (Enoxaparin 40 Mg/0.4 Ml Syringe) 40 mg SQ DAILY MARIO Last Admin: 04/01/22 08:23 Dose: 40 mg Folic Acid (Folic Acid 1 Mg Tablet) 1 mg PO DAILY MARIO Last Admin: 04/01/22 08:28 Dose: 1 mg Glucose (Dextrose 31 Gm Oral.Susp) 15 gm PO PRN PRN PRN Reason: Hypoglycemia Thiamine HCl 200 mg/ Sodium (Chloride) 52 mls @ 50 mls/hr IV DAILY [facility] Stop: 04/02/22 10:03 Last Admin: 04/01/22 10:57 Dose: 50 mls/hr Insulin Human Lispro (Insulin Lispro 1 Unit/0.01 Ml Unit) 0 unit SQ ACHS [facility]; Protocol Last Admin: 04/01/22 08:23 Dose: 4 unit Iron Carb/Multivit/[employer]/Folic Acid (Multivit,Ther Iron,Ca,Fa & Min 1 Tablet) 1 tab PO DAILY [facility] Last Admin: 04/01/22 08:28 Dose: 1 tab Lactulose (Lactulose 20 Gm/30 Ml Oral.Milagro) 10 gm PO DAILYP PRN PRN Reason: Constipation Lisinopril (Lisinopril 10 Mg Tablet) 10 mg PO DAILY [facility] Last Admin: 04/01/22 08:27 Dose: 10 mg Ondansetron HCl (Ondansetron 4 Mg/2 Ml Vial) 4 mg IV Q4HP PRN; Protocol PRN Reason: Nausea And Vomiting Last Admin: 03/31/22 07:23 Dose: 4 mg Pantoprazole Sodium (Pantoprazole 40 Mg Tablet) 40 mg PO HS MARIO Last Admin: 03/31/22 20:12 Dose: 40 mg Promethazine HCl (Promethazine 25 Mg/Ml Vial) 12.5 mg IV Q4HP PRN PRN Reason: Nausea And Vomiting Last Admin: 03/30/22 02:42 Dose: 12.5 mg Senna (Sennosides 1 Tablet) 2 tab PO HSP PRN PRN Reason: Constipation Sodium Chloride (0.9 % Sodium Chloride 10 Ml Syringe) 10 ml IV Q8 MARIO Last Admin: 04/01/22 06:02 Dose: 10 ml Sodium Chloride (0.9 % Sodium Chloride 10 Ml Syringe) 10 ml IV Q8 [facility] Last Admin: 04/01/22 06:02 Dose: Not Given Thiamine HCl (Thiamine 100 Mg Tablet) 100 mg PO DAILY MARIO A/P Narrative A/P Narrative: Assessment: 62 year old male with a history of severe alcohol use disorder complicated by alcohol withdrawal seizures, recurrent pancreatitis felt to be secondary to alcohol use, type 2 diabetes mellitus, hypertension, obstructive sleep apnea admitted for alcohol withdrawal. The patient has previously been treated with acamprosate and oral naltrexone for severe alcohol use disorder. The patient says he did not tolerate naltrexone well. #Alcohol withdrawal, resolving #History of alcohol withdrawal seizures #Resolving pancytopenia likely secondary to alcohol use #Nonsevere alcoholic hepatitis #Type 2 diabetes mellitus #Hypertension #Hyperlipidemia #History of recurrent pancreatitis likely secondary to alcohol #Severe alcohol use disorder Plan -CIWA protocol with Valium PO as needed. -Vitamin supplementation. -Monitor and replace electrolytes as needed. -Monitor a CBC and LFTs. -Continue lisinopril 10 mg daily. -Correction Humalog SSIlow. -Protonix p.o. daily. -Consistent carbohydrate diet. -Seizure precautions. -PT and OT consult -DVT prophylaxis: Lovenox -CODE STATUS: Full -Disposition: Probably inpatient rehab for alcohol use disorder. Inpatient rehab is medically necessary given the potentially life-threatening nature of the patient's severe alcohol use disorder. At discharge, the patient will be medically cleared for inpatient rehab for alcohol use disorder. Time Spent With Patient Time: Total time spent is greater than 50% in coordination of care (as documented) at patient's floor/unit and/or counseling patient: QUALITY VTE Deep Vein Thrombosis/Pulmonary Embolism Present on Admission: No
[2022-04-01] MEDS: PANTOPRAZOLE 40 MG TABLET PO SCH (20:32)
--- NOTE | 2022-04-01 21:54 | EKG ---
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
[2022-04-02] MEDS: 0.9 % SODIUM CHLORIDE 10 ML SYRINGE IV SCH ×2 (05:35)
[2022-04-02 07:02] LABS: Hematocrit 43.9 % (40.1-51.0); Hemoglobin 14.3 g/dL (13.7-17.5); Mean Cell Volume 96.5 fL (80.0-100.0); Mean Corpuscular HGB Conc 32.6 g/dL (31.0-36.0); Mean Platelet Volume 10.1 fL (8.8-12.5); Platelet Count 95 K/mcL (140-440); RBC 4.55 M/mcL (4.63-6.08); Red Cell Distribution Width 14.9 % (11.5-14.5); WBC 4.6 K/mcL (4.5-11.0)
[2022-04-02 07:14] LABS: ALT/SGPT 152 U/L (<40); AST/SGOT 191 U/L (<40); Albumin 4.2 gm/dL (3.2-5.2); Albumin/Globulin Ratio 1.8 (1.0-2.3); Alkaline Phosphatase 117 U/L (39-117); Bilirubin,Direct 0.2 mg/dL (<0.3); Bilirubin,Total 0.9 mg/dL (0.1-1.0); Blood Urea Nitrogen 12 mg/dL (6-20); Calcium 9.3 mg/dL (8.6-10.4); Carbon Dioxide 22 mmol/L (22-30); Chloride 99 mmol/L (96-108); Globulin 2.4 gm/dL (2.2-3.7); Glomerular Filtration Rate 97; Glucose 244 mg/dL (70-105); Lactate Dehydrogenase 315 U/L (135-225); Phosphorous 4.2 mg/dL (2.5-4.5); Triglycerides 117 mg/dL (<150); Uric Acid 4.6 mg/dL (2.5-8.0)
--- NOTE | 2022-04-02 07:41 | Discharge Summary ---
Discharge Provider Provider IMPORTANT FOLLOW-UP INFORMATION FOR PCP: Patient information: Note initiated : 04/02/22 at 7:36 am Service Date, if different from initiated Date: [] Patient: Miguel A Dumas 62 y/o M admitted on 03/28/22 for Alcohol Withdrawal. Chief Complaint: [] Date of admission: 03/28/22 15:57 Discharge date: 04/02/22 Primary care physician: Yonny Hull MD Consults: 03/28/22 Consult to Physician [CONS] Stat Comment: Consulting Provider: Willie Harris Reason For Exam: Physician to Consult COURSE Hospital Course Hospital course: Mr. Dumas is a 62 year old male with a history of severe alcohol use disorder complicated by alcohol withdrawal seizures, recurrent pancreatitis felt to be secondary to alcohol use, type 2 diabetes mellitus, hypertension, obstructive sleep apnea who presented to the emergency department with concerns of alcohol withdrawal. The patient says that he has been drinking half a gallon of vodka daily for about 3 weeks. He says that when he tries to reduce his alcohol intake he develops alcohol withdrawal symptoms. Additionally, the patient has experienced epigastric abdominal pain and has had poor nutritional intake over the last few weeks. Hospital medicine was consulted for admission for alcohol withdrawal. 03/29 No significant events overnight, CIWA score this morning was 8. Continues on scheduled Valium and as needed Valium per CIWA scores. Increased thiamine supplementation dose. Replaced magnesium. 03/30 Blood pressure elevated overnight, started lisinopril. CIWA scores modestly elevated. Continue CIWA protocol with Valium as needed. Discontinued scheduled p.o. Valium yesterday. 03/31 Vitals stable overnight, withdrawal symptoms improved. Started as needed oral Valium per CIWA protocol, discontinued as needed IV Valium. Patient strength seems to be improving with physical therapy. Patient is hopeful to discharge to inpatient rehab in the coming days. 04/01 Stable overnight, has a good appetite. Withdrawal appears to be resolving, the patient is still weak but getting stronger. Patient was tachycardic with ambulation, EKG showed sinus tachycardia. Transfer to [facility]. 04/02 Stable overnight, good appetite, strength continues to improve and the patient is now able to ambulate without a walker. Alcohol withdrawal has resolved. Persistently modest LFT elevation likely secondary to nonsevere alcoholic hepatitis. Discharged to home with his spouse, the plan is for the patient to go to inpatient rehab in [place], [place], for alcohol use disorder as soon as a bed opens up. Inpatient rehab for alcohol use disorder is medically necessary for this patient given the potentially life-threatening nature of the patient's alcohol use. The patient is medically cleared for inpatient rehab. No changes to prior home medications at discharge. Discussed naltrexone IM injections however the patient says that he did not tolerate oral naltrexone. Discussed acamprosate which the patient has tolerated in the past however wants to discuss with his PCP before attempting that. Follow-up with PCP after discharge, recommend repeating LFTs when the patient is seen in clinic. Physical exam Head: Atraumatic, normal inspection. Eyes: normal appearance, no scleral icterus. Neck: full ROM Respiratory: no respiratory distress. Cardiovascular: Regular tachycardia, S1, S2. GI/Abdominal: soft, no tenderness, no guarding Extremities: full range of motion, nontender. Neurological: CN II-XII intact, intact motor, intact sensation. Psychiatric: Normal mood Skin: warm, normal color Discharge diagnosis: Alcohol withdrawal Secondary discharge diagnosis: Severe alcohol use disorder Time Spent with Patient Time attestation: Total time spent providing and/or coordinating discharge services: Time spent: Greater than 30 minutes EXAM Constitutional Vitals: Temp Pulse Resp BP Pulse Ox O2 Del Method O2 Flow Rate 98.4 F 93 H 16 120/88 97 2 04/02/22 03:14 04/02/22 03:14 04/02/22 03:14 04/02/22 03:14 04/02/22 03:14 04/02/22 03:14 03/31/22 04:01 Discharge Data Data Completed and Pending Labs on day of discharge: Labs from last 24 hours 04/02/22 04/02/22 04/01/22 05:22 05:22 05:39 WBC 4.6 RBC 4.55 L Hgb 14.3 Hct 43.9 MCV 96.5 MCH 31.4 MCHC 32.6 RDW 14.9 H Plt Count 95 L MPV 10.1 Seg Neutrophils % 71 Lymphocytes % 14 L Monocytes % (Manual) 7 Eosinophils % (Manual) 4 Reactive Lymphocytes 4 H Platelet Estimate Pending Normal RBC Morphology Pending Abnormal A Anisocytosis Occ A Sodium 136 Potassium 4.4 Chloride 99 Carbon Dioxide 22 Anion Gap 15.0 BUN 12 Creatinine 0.8 GFR Calculation 97 Glucose 244 H Uric Acid 4.6 Calcium 9.3 Phosphorus 4.2 Magnesium 1.9 Total Bilirubin 0.9 Direct Bilirubin 0.2 GGT 179 H AST 191 H ALT 152 H Alkaline Phosphatase 117 Lactate Dehydrogenase 315 H Total Protein 6.6 Albumin 4.2 Globulin 2.4 Albumin/Globulin Ratio 1.8 Triglycerides 117 Discharge Plan Patient/Caregiver Discharge Instructions Activity: increase activity as tolerated Diet: Consistent Carbohydrate Prescriptions: Continued metformin 1,000 mg tablet 1,000 mg PO BID Qty: 180 1RF omeprazole 20 mg capsule,delayed release(DR/EC) 20 mg PO QDAY PRN (Reason: gastric reflux) Qty: 90 1RF cholecalciferol (vitamin D3) 1,000 unit capsule 1,000 unit PO QDAY vitamin B complex tablet 1 tab PO QDAY multivitamin tablet 1 tab PO QDAY (DME) blood-glucose meter [Glucocard Expression] [facility] See Dose Instructions .ROUTE .MEDSUPPLY Qty: 1 0RF Dose Instruction: As directed Rx Instructions: Use to test BG once daily potassium gluconate 595 mg (99 mg) tablet 595 mg PO QDAY magnesium oxide 400 mg (241.3 mg magnesium) tablet 400 mg PO QDAY (DME) Glucocard Expression Strip See Dose Instructions .ROUTE .MEDSUPPLY Qty: 100 3RF Dose Instruction: As directed Rx Instructions: Use to test BG once daily (DME) lancets 33 gauge misc See Rx Instructions [id number] .MEDSUPPLY Qty: 100 3RF Rx Instructions: Use to test BG once daily Follow Up Plan Follow up with: Yonny Hull MD [Primary Care Provider] - Patient Disposition: Home, Self-Care Prognosis: Good Overall status at discharge: patient is progressing back to baseline Discharge Orders: Discharge Order (Routine); Ordered 04/02/22 Ordered By: Willie LIN VTE Deep Vein Thrombosis/Pulmonary Embolism Present on Admission: No
[2022-04-02] MEDS: DOCUSATE SODIUM 100 MG CAPSULE PO SCH (08:36)
[2022-04-02] MEDS: LISINOPRIL 10 MG TABLET PO SCH (08:36)
[2022-04-02] MEDS: MULTIVIT,THER IRON,CA,FA & MIN 1 TABLET PO SCH (08:36)
[2022-04-02] MEDS: FOLIC ACID 1 MG TABLET PO SCH (08:36)
[2022-04-02] MEDS: THIAMINE 200 MG in 0.9 % SODIUM CHLORIDE 50 ML IV SCH (08:37)
[2022-04-02] MEDS: INSULIN LISPRO 1 UNIT/0.01 ML UNIT SQ SCH ×2 (08:37→13:10)
[2022-04-02] MEDS: ENOXAPARIN 40 MG/0.4 ML SYRINGE SQ SCH (08:38)
[2022-04-02 11:34] LABS: Anisocytosis 1+ (None Seen); Band Neutrophils % 1 % (0-10); Eosinophils % (Manual) 9 % (0-7); Lymphocytes % 21 % (15-49); Monocytes % (Manual) 5 % (1-12); Platelet Estimate DECREASED (Normal); RBC Morphology ABNORMAL (Normal); Segmented Neutrophils % 64 % (38-78)
[2022-04-03] MEDS ORDERED: THIAMINE 100 MG TABLET PO SCH (09:00)
== END 2022-04-02 12:50 | disposition home or self-care (01) | DRG 897 ==
LOC: ED 10:32 → ICU 15:57 → MEDSUR 04-01 15:15
PROVIDERS: ADMIT Internal Medicine; ATTEND Internal Medicine

== ENCOUNTER 2022-12-23 16:46 | Inpatient (IN) ==
[2022-12-23] MEDS ORDERED: THIAMINE 100 MG TABLET PO ONE (17:27)
[2022-12-23] MEDS ORDERED: FOLIC ACID 1 MG TABLET PO ONE (17:27)
[2022-12-23] MEDS ORDERED: FAMOTIDINE/PF 20 MG/2 ML VIAL IV ONE (17:34)
[2022-12-23] MEDS ORDERED: 0.9 % SODIUM CHLORIDE 1,000 ML IV ONE (17:34)
[2022-12-23] MEDS ORDERED: ONDANSETRON 4 MG/2 ML VIAL IV ONE (17:34)
[2022-12-23] MEDS ORDERED: PHENobarbital SOD 130 MG/ML VIAL IV ONE (17:36)
[2022-12-23 17:40] LABS: POC Calcium, Ionized 1.01 (1.16-1.32); POC Creatinine 0.6 (0.6-1.2); POC Potassium 4.4 (3.3-5.1)
[2022-12-23] MEDS ORDERED: POTASSIUM CHLORIDE 20 MEQ, MAGNESIUM SULFATE 16.24 MEQ, THIAMINE 100 MG, MVI, ADULT NO.... IV SCH (17:45)
[2022-12-23 18:17] LABS: Basophils # (Auto) 0.03 K/mcL (0.00-0.30); Basophils % (Auto) 0.5 % (0.0-2.0); Eosinophils # (Auto) 0 K/mcL (0.00-0.70); Eosinophils % (Auto) 0 % (0.0-7.0); Hematocrit 43.2 % (40.1-51.0); Hemoglobin 14.4 g/dL (13.7-17.5); Lymphocytes # (Auto) 0.35 K/mcL (1.50-4.80); Mean Cell Volume 94.3 fL (80.0-100.0); Mean Corpuscular HGB Conc 33.3 g/dL (31.0-36.0); Mean Platelet Volume 9.9 fL (8.8-12.5); Monocytes # (Auto) 0.38 K/mcL (0.10-0.90); Monocytes % (Auto) 6.5 % (1.0-12.0); Neutrophils % (Auto) 86.7 % (38.0-78.0); Platelet Count 117 K/mcL (140-440); RBC 4.58 M/mcL (4.63-6.08); Red Cell Distribution Width 14.1 % (11.5-14.5); WBC 5.9 K/mcL (4.5-11.0)
[2022-12-23 18:37] LABS: ALT/SGPT 38 U/L (<40); AST/SGOT 69 U/L (<40); Albumin 4.5 gm/dL (3.2-5.2); Alkaline Phosphatase 101 U/L (39-117); Bilirubin,Direct 0.4 mg/dL (<0.3); Bilirubin,Total 1.4 mg/dL (0.1-1.0)
[2022-12-23 19:10] LABS: Amphetamine Screen,Urine None detected; Barbiturate Screen,Urine None detected; Benzodiazepines Screen,Urine None detected; Cannabinoid Screen,Urine None detected; Cocaine Screen,Urine None detected; Opiate Screen,Urine None detected; Oxycodone, Urine Screen None detected; Phencyclidine Screen,Urine None detected
[2022-12-23 19:13] LABS: Alcohol, Blood < 10.0 mg/dL; Alcohol,Blood < 0.010 gm/dL (<0.010)
[2022-12-23] MEDS ORDERED: PROCHLORPERAZINE 10 MG/2 ML VIAL IV ONE (19:23)
[2022-12-23] MEDS ORDERED: cloNIDine HCL 0.1 MG TABLET PO SCH (19:30)
[2022-12-23] MEDS ORDERED: cloNIDine HCL 0.1 MG TABLET ONE (20:20)
[2022-12-23] MEDS ORDERED: POTASSIUM CHLORIDE 40 MEQ in DEXTROSE 5% IN WATER 500 ML IV PRN (20:55)
[2022-12-23] MEDS ORDERED: METOCLOPRAMIDE 10 MG/2 ML VIAL IV PRN (20:55)
[2022-12-23] MEDS ORDERED: POLYETHYLENE GLYCOL 3350 17 GM PACKET PO PRN (20:55)
[2022-12-23] MEDS ORDERED: POTASSIUM CHLORIDE 20 MEQ TABLET PO PRN ×2 (20:55)
[2022-12-23] MEDS ORDERED: MAGNESIUM SULFATE 2 GM/50 ML BAG IV PRN (20:55)
[2022-12-23] MEDS ORDERED: SENNOSIDES 1 TABLET PO PRN (20:55)
[2022-12-23] MEDS ORDERED: DEXTROSE 31 GM ORAL.SUSP PO PRN (20:55)
[2022-12-23] MEDS ORDERED: LABETALOL 5 MG/ML ML IV PRN (20:55)
[2022-12-23] MEDS ORDERED: ONDANSETRON 4 MG/2 ML VIAL IV PRN (20:55)
[2022-12-23] MEDS ORDERED: MAGNESIUM SULFATE 2 GM/50 ML BAG IV ONE (20:55)
[2022-12-23] MEDS ORDERED: DEXTROSE 50% 50 ML VIAL IV PRN (20:55)
[2022-12-23] MEDS ORDERED: chlordiazePOXIDE 25 MG CAPSULE PO PRN (20:55)
[2022-12-23] MEDS ORDERED: IPRATROPIUM/ALBUTEROL 3 ML AMPUL.NEB NEB PRN (20:55)
[2022-12-23] MEDS: INSULIN LISPRO 1 UNIT/0.01 ML UNIT SQ SCH (21:35)
[2022-12-23] MEDS: DOCUSATE SODIUM 100 MG CAPSULE PO SCH (21:35)
[2022-12-23] MEDS: DIAZEPAM 5 MG TABLET PO SCH ×3 (21:35→23:37)
[2022-12-23] MEDS: PANTOPRAZOLE 40 MG VIAL IV SCH (21:35)
[2022-12-23] MEDS: 0.9 % SODIUM CHLORIDE 1,000 ML IV SCH (21:36)
[2022-12-23] MEDS: 0.9 % SODIUM CHLORIDE 10 ML SYRINGE IV SCH ×2 (21:37)
[2022-12-23 21:40] LABS: HDL Cholesterol 136 mg/dL (>40); LDL Cholesterol,Calculated 113 mg/dL (<100); Non-HDL Cholesterol 125 mg/dL (<130); Triglycerides 64 mg/dL (<150)
[2022-12-23] MEDS ORDERED: ATORVASTATIN 20 MG TABLET ONE (22:27)
[2022-12-23] MEDS: ATORVASTATIN 20 MG TABLET PO SCH (22:29)
[2022-12-24] MEDS ORDERED: chlordiazePOXIDE 25 MG CAPSULE PO ONE (02:00)
[2022-12-24] MEDS: 0.9 % SODIUM CHLORIDE 10 ML SYRINGE IV SCH ×6 (04:06→20:17)
[2022-12-24] MEDS: 0.9 % SODIUM CHLORIDE 1,000 ML IV SCH (04:06)
[2022-12-24] MEDS ORDERED: DIAZEPAM 10 MG/2 ML SYRINGE ONE (05:23)
[2022-12-24] MEDS: DIAZEPAM 10 MG/2 ML SYRINGE IV PRN (05:29)
[2022-12-24 06:45] LABS: Basophils # (Auto) 0.02 K/mcL (0.00-0.30); Basophils % (Auto) 0.4 % (0.0-2.0); Eosinophils # (Auto) 0.04 K/mcL (0.00-0.70); Eosinophils % (Auto) 0.7 % (0.0-7.0); Hematocrit 40.1 % (40.1-51.0); Hemoglobin 12.7 g/dL (13.7-17.5); Lymphocytes # (Auto) 0.76 K/mcL (1.50-4.80); Lymphocytes % (Auto) 14.2 % (15.5-49.0); Mean Cell Volume 97.3 fL (80.0-100.0); Mean Corpuscular HGB Conc 31.7 g/dL (31.0-36.0); Mean Platelet Volume 9.9 fL (8.8-12.5); Monocytes # (Auto) 0.65 K/mcL (0.10-0.90); Monocytes % (Auto) 12.1 % (1.0-12.0); Neutrophils % (Auto) 72.2 % (38.0-78.0); Platelet Count 92 K/mcL (140-440); RBC 4.12 M/mcL (4.63-6.08); Red Cell Distribution Width 14.3 % (11.5-14.5); WBC 5.4 K/mcL (4.5-11.0)
[2022-12-24 07:02] LABS: ALT/SGPT 28 U/L (<40); AST/SGOT 47 U/L (<40); Albumin 3.8 gm/dL (3.2-5.2); Albumin/Globulin Ratio 1.5 (1.0-2.3); Alkaline Phosphatase 81 U/L (39-117); Bilirubin,Direct 0.3 mg/dL (<0.3); Bilirubin,Total 1.1 mg/dL (0.1-1.0); Blood Urea Nitrogen 7 mg/dL (6-20); Calcium 7.9 mg/dL (8.6-10.4); Carbon Dioxide 25 mmol/L (22-30); Chloride 98 mmol/L (96-108); Globulin 2.5 gm/dL (2.2-3.7); Glomerular Filtration Rate 102; Glucose 128 mg/dL (70-105); Lactate Dehydrogenase 242 U/L (135-225); Phosphorous 1.7 mg/dL (2.5-4.5); Triglycerides 77 mg/dL (<150); Uric Acid 8.7 mg/dL (2.5-8.0)
[2022-12-24] MEDS: PANTOPRAZOLE 40 MG VIAL IV SCH (07:29)
[2022-12-24] MEDS: INSULIN LISPRO 1 UNIT/0.01 ML UNIT SQ SCH ×4 (07:31→20:15)
[2022-12-24] MEDS: ACETAMINOPHEN 325 MG TABLET PO PRN ×2 (07:36→20:16)
[2022-12-24 07:41] LABS: Estimated Average Glucose(eAG) 143 mg/dL; Hemoglobin A1C 6.6 % Hgb (4.0-6.0)
[2022-12-24] MEDS: NEUTRA PHOS 1 PACKET PO SCH ×2 (09:11→20:14)
[2022-12-24] MEDS: PHOSPHORUS 250 MG TABLET PO SCH ×2 (09:12→20:17)
[2022-12-24] MEDS: DOCUSATE SODIUM 100 MG CAPSULE PO SCH ×2 (09:12→20:16)
[2022-12-24] MEDS: FOLIC ACID 1 MG TABLET PO SCH (09:12)
[2022-12-24] MEDS: MULTIVIT,THER IRON,CA,FA & MIN 1 TABLET PO SCH (09:12)
[2022-12-24] MEDS: ENOXAPARIN 40 MG/0.4 ML SYRINGE SQ SCH (09:12)
[2022-12-24] MEDS: THIAMINE 100 MG in 0.9 % SODIUM CHLORIDE 50 ML IV SCH (10:07)
[2022-12-24] MEDS: cloNIDine HCL 0.1 MG TABLET PO PRN (17:05)
[2022-12-24] MEDS: ATORVASTATIN 20 MG TABLET PO SCH (20:17)
[2022-12-25] MEDS: 0.9 % SODIUM CHLORIDE 10 ML SYRINGE IV SCH ×6 (04:59→22:00)
[2022-12-25] MEDS: ACETAMINOPHEN 325 MG TABLET PO PRN (04:59)
[2022-12-25] MEDS: cloNIDine HCL 0.1 MG TABLET PO PRN ×3 (05:06→23:21)
[2022-12-25 06:49] LABS: Basophils # (Auto) 0.02 K/mcL (0.00-0.30); Basophils % (Auto) 0.6 % (0.0-2.0); Eosinophils # (Auto) 0.12 K/mcL (0.00-0.70); Eosinophils % (Auto) 3.5 % (0.0-7.0); Hematocrit 39.7 % (40.1-51.0); Lymphocytes # (Auto) 0.85 K/mcL (1.50-4.80); Lymphocytes % (Auto) 24.5 % (15.5-49.0); Mean Cell Volume 96.1 fL (80.0-100.0); Mean Corpuscular HGB Conc 32.7 g/dL (31.0-36.0); Mean Platelet Volume 10.6 fL (8.8-12.5); Monocytes # (Auto) 0.42 K/mcL (0.10-0.90); Monocytes % (Auto) 12.1 % (1.0-12.0); Neutrophils % (Auto) 58.7 % (38.0-78.0); Platelet Count 71 K/mcL (140-440); RBC 4.13 M/mcL (4.63-6.08); Red Cell Distribution Width 13.8 % (11.5-14.5); WBC 3.5 K/mcL (4.5-11.0)
[2022-12-25 07:06] LABS: ALT/SGPT 27 U/L (<40); AST/SGOT 42 U/L (<40); Albumin 3.7 gm/dL (3.2-5.2); Albumin/Globulin Ratio 1.4 (1.0-2.3); Alkaline Phosphatase 82 U/L (39-117); Bilirubin,Direct 0.3 mg/dL (<0.3); Blood Urea Nitrogen 8 mg/dL (6-20); Calcium 8.7 mg/dL (8.6-10.4); Carbon Dioxide 26 mmol/L (22-30); Chloride 99 mmol/L (96-108); Globulin 2.7 gm/dL (2.2-3.7); Glomerular Filtration Rate 109; Glucose 125 mg/dL (70-105); Lactate Dehydrogenase 233 U/L (135-225); Phosphorous 2.9 mg/dL (2.5-4.5); Triglycerides 86 mg/dL (<150); Uric Acid 6.8 mg/dL (2.5-8.0)
[2022-12-25] MEDS: PANTOPRAZOLE 40 MG VIAL IV SCH (07:19)
[2022-12-25] MEDS: INSULIN LISPRO 1 UNIT/0.01 ML UNIT SQ SCH ×4 (07:19→20:55)
[2022-12-25] MEDS: MULTIVIT,THER IRON,CA,FA & MIN 1 TABLET PO SCH (08:31)
[2022-12-25] MEDS: ENOXAPARIN 40 MG/0.4 ML SYRINGE SQ SCH (08:31)
[2022-12-25] MEDS: DOCUSATE SODIUM 100 MG CAPSULE PO SCH ×2 (08:31→20:51)
[2022-12-25] MEDS: FOLIC ACID 1 MG TABLET PO SCH (08:31)
[2022-12-25] MEDS: THIAMINE 100 MG in 0.9 % SODIUM CHLORIDE 50 ML IV SCH (09:52)
[2022-12-25] MEDS: ATORVASTATIN 20 MG TABLET PO SCH (20:51)
[2022-12-25] MEDS: DIAZEPAM 10 MG/2 ML SYRINGE IV PRN (23:18)
[2022-12-26] MEDS: 0.9 % SODIUM CHLORIDE 10 ML SYRINGE IV SCH ×3 (03:33→05:36)
[2022-12-26 07:01] LABS: Basophils # (Auto) 0.03 K/mcL (0.00-0.30); Basophils % (Auto) 0.6 % (0.0-2.0); Eosinophils # (Auto) 0.14 K/mcL (0.00-0.70); Eosinophils % (Auto) 2.7 % (0.0-7.0); Hematocrit 45.1 % (40.1-51.0); Hemoglobin 14.8 g/dL (13.7-17.5); Lymphocytes # (Auto) 0.85 K/mcL (1.50-4.80); Lymphocytes % (Auto) 16.2 % (15.5-49.0); Mean Cell Volume 96.2 fL (80.0-100.0); Mean Corpuscular HGB Conc 32.8 g/dL (31.0-36.0); Mean Platelet Volume 10.1 fL (8.8-12.5); Monocytes # (Auto) 0.57 K/mcL (0.10-0.90); Monocytes % (Auto) 10.9 % (1.0-12.0); Neutrophils % (Auto) 69.4 % (38.0-78.0); Platelet Count 97 K/mcL (140-440); RBC 4.69 M/mcL (4.63-6.08); Red Cell Distribution Width 13.7 % (11.5-14.5); WBC 5.3 K/mcL (4.5-11.0)
[2022-12-26] MEDS: INSULIN LISPRO 1 UNIT/0.01 ML UNIT SQ SCH ×2 (07:37→12:38)
[2022-12-26] MEDS: PANTOPRAZOLE 40 MG VIAL IV SCH (07:37)
[2022-12-26] MEDS ORDERED: LISINOPRIL 10 MG TABLET PO SCH (09:00)
[2022-12-26] MEDS ORDERED: THIAMINE 100 MG/ML VIAL ONE (09:20)
[2022-12-26] MEDS: THIAMINE 100 MG in 0.9 % SODIUM CHLORIDE 50 ML IV SCH (09:26)
[2022-12-26] MEDS: DOCUSATE SODIUM 100 MG CAPSULE PO SCH (09:26)
[2022-12-26] MEDS: FOLIC ACID 1 MG TABLET PO SCH (09:26)
[2022-12-26] MEDS: ENOXAPARIN 40 MG/0.4 ML SYRINGE SQ SCH (09:26)
[2022-12-26] MEDS: MULTIVIT,THER IRON,CA,FA & MIN 1 TABLET PO SCH (09:26)
== END 2022-12-26 13:20 | disposition home or self-care (01) | DRG 897 ==
LOC: ED 16:46 → ICU 20:38 → MEDSUR 12-25 17:37
PROVIDERS: ADMIT Internal Medicine; ATTEND Internal Medicine

== ENCOUNTER 2023-12-30 10:59 | Inpatient (IN) ==
[2023-12-30] MEDS ORDERED: IOPAMIDOL 100 ML BOTTLE IV ONE (11:00)
[2023-12-30] MEDS: PHENobarbital SOD 130 MG/ML VIAL IV ONE ×3 (11:28→15:29)
[2023-12-30 11:38] LABS: Basophils # (Auto) 0.03 K/mcL (0.00-0.30); Basophils % (Auto) 0.7 % (0.0-2.0); Eosinophils # (Auto) 0.03 K/mcL (0.00-0.70); Eosinophils % (Auto) 0.7 % (0.0-7.0); Hematocrit 38.2 % (40.1-51.0); Hemoglobin 12.4 g/dL (13.7-17.5); Lymphocytes # (Auto) 0.87 K/mcL (1.50-4.80); Mean Corpuscular HGB Conc 32.5 g/dL (31.0-36.0); Mean Platelet Volume 8.7 fL (8.8-12.5); Monocytes # (Auto) 0.67 K/mcL (0.10-0.90); Monocytes % (Auto) 16.2 % (1.0-12.0); Neutrophils % (Auto) 61.2 % (38.0-78.0); Platelet Count 184 K/mcL (140-440); RBC 4.29 M/mcL (4.63-6.08); Red Cell Distribution Width 16.7 % (11.5-14.5); WBC 4.1 K/mcL (4.5-11.0)
[2023-12-30] MEDS: 0.9 % SODIUM CHLORIDE 1,000 ML IV ONE ×2 (11:41→12:45)
[2023-12-30] MEDS: THIAMINE 500 MG in 0.9 % SODIUM CHLORIDE 50 ML IV ONE (11:47)
[2023-12-30 11:57] LABS: ALT/SGPT 38 U/L (<40); AST/SGOT 58 U/L (<40); Albumin 4.7 gm/dL (3.2-5.2); Albumin/Globulin Ratio 1.7 (1.0-2.3); Alkaline Phosphatase 83 U/L (39-117); Bilirubin,Total 0.4 mg/dL (0.1-1.0); Blood Urea Nitrogen 8 mg/dL (8-23); Calcium 8.9 mg/dL (8.6-10.4); Carbon Dioxide 21 mmol/L (22-30); Chloride 96 mmol/L (96-108); Globulin 2.7 gm/dL (2.2-3.7); Glomerular Filtration Rate 108; Glucose 131 mg/dL (70-105); Potassium 4.4 mmol/L (3.3-5.1); Sodium 138 mmol/L (133-145)
[2023-12-30 12:02] LABS: Alcohol,Blood 0.16 gm/dL (<0.010)
[2023-12-30] MEDS: ONDANSETRON 4 MG/2 ML VIAL IV ONE ×2 (12:36→15:14)
[2023-12-30] MEDS: PANTOPRAZOLE 40 MG VIAL IV ONE (13:15)
[2023-12-30] MEDS: MAG HYDROX/AL HYDROX/SIMETH 30 ML ORAL.SUSP PO ONE (13:16)
[2023-12-30] MEDS: MAGNESIUM SULFATE 1 GM/100 ML BAG IV ONE ×2 (13:49→17:56)
[2023-12-30 14:02] LABS: INR 0.8 (0.9-1.1); Prothrombin Time 11.4 sec (11.9-14.5)
[2023-12-30] MEDS ORDERED: ENALAPRILAT 1.25 MG/ML VIAL IV PRN (17:23)
[2023-12-30] MEDS ORDERED: LORazepam 2 MG/ML VIAL IV PRN (17:23)
[2023-12-30] MEDS ORDERED: LABETALOL HCL 20 MG/4 ML VIAL IV PRN (17:23)
[2023-12-30] MEDS ORDERED: DEXTROSE 31 GM ORAL.SUSP PO PRN (17:23)
[2023-12-30] MEDS ORDERED: DEXTROSE 50% 50 ML VIAL IV PRN (17:23)
[2023-12-30] MEDS: DIAZEPAM 5 MG TABLET PO SCH (17:44)
[2023-12-30 18:17] LABS: Basophils # (Auto) 0.03 K/mcL (0.00-0.30); Basophils % (Auto) 0.7 % (0.0-2.0); Eosinophils # (Auto) 0.02 K/mcL (0.00-0.70); Eosinophils % (Auto) 0.5 % (0.0-7.0); Hematocrit 36.1 % (40.1-51.0); Hemoglobin 11.7 g/dL (13.7-17.5); Lymphocytes # (Auto) 0.85 K/mcL (1.50-4.80); Lymphocytes % (Auto) 20.7 % (15.5-49.0); Mean Cell Volume 89.4 fL (80.0-100.0); Mean Corpuscular HGB Conc 32.4 g/dL (31.0-36.0); Monocytes # (Auto) 0.81 K/mcL (0.10-0.90); Monocytes % (Auto) 19.8 % (1.0-12.0); Neutrophils % (Auto) 58.1 % (38.0-78.0); Platelet Count 157 K/mcL (140-440); RBC 4.04 M/mcL (4.63-6.08); Red Cell Distribution Width 16.6 % (11.5-14.5); WBC 4.1 K/mcL (4.5-11.0)
[2023-12-30] MEDS: THIAMINE 300 MG in 0.9 % SODIUM CHLORIDE 50 ML IV ONE (18:32)
[2023-12-30] MEDS: HYDROmorphone 0.5 MG/0.5 ML SYRINGE IV PRN (18:47)
[2023-12-30] MEDS: 0.9 % SODIUM CHLORIDE 10 ML SYRINGE IV SCH (18:47)
[2023-12-30] MEDS: METOCLOPRAMIDE 10 MG/2 ML VIAL IV PRN (19:48)
[2023-12-30] MEDS: DIAZEPAM 10 MG/2 ML SYRINGE IV PRN (19:48)
[2023-12-30] MEDS: oxyCODONE/APAP 5/325MG TABLET PO PRN (19:49)
[2023-12-30] MEDS: SENNOSIDES 1 TABLET PO SCH (20:52)
[2023-12-30] MEDS: INSULIN LISPRO 1 UNIT/0.01 ML UNIT SQ SCH (20:57)
[2023-12-30] MEDS ORDERED: 0.9 % SODIUM CHLORIDE 10 ML SYRINGE IV SCH (22:00)
[2023-12-30 22:36] LABS: Amphetamine Screen,Urine None detected; Barbiturate Screen,Urine Suspect positive; Benzodiazepines Screen,Urine None detected; Cannabinoid Screen,Urine None detected; Cocaine Screen,Urine None detected; Opiate Screen,Urine None detected; Oxycodone, Urine Screen None detected; Phencyclidine Screen,Urine None detected
[2023-12-31] MEDS: ONDANSETRON 4 MG/2 ML VIAL IV PRN (00:06)
[2023-12-31 06:20] LABS: Basophils # (Auto) 0.02 K/mcL (0.00-0.30); Basophils % (Auto) 0.5 % (0.0-2.0); Eosinophils # (Auto) 0.06 K/mcL (0.00-0.70); Eosinophils % (Auto) 1.5 % (0.0-7.0); Hemoglobin 11.8 g/dL (13.7-17.5); Lymphocytes # (Auto) 0.94 K/mcL (1.50-4.80); Lymphocytes % (Auto) 23.6 % (15.5-49.0); Mean Cell Volume 89.6 fL (80.0-100.0); Mean Corpuscular HGB Conc 32.8 g/dL (31.0-36.0); Mean Platelet Volume 9.4 fL (8.8-12.5); Monocytes # (Auto) 0.79 K/mcL (0.10-0.90); Monocytes % (Auto) 19.8 % (1.0-12.0); Neutrophils % (Auto) 54.3 % (38.0-78.0); Platelet Count 160 K/mcL (140-440); RBC 4.02 M/mcL (4.63-6.08); Red Cell Distribution Width 16.6 % (11.5-14.5)
[2023-12-31 07:06] LABS: ALT/SGPT 31 U/L (<40); AST/SGOT 46 U/L (<40); Albumin 4.1 gm/dL (3.2-5.2); Albumin/Globulin Ratio 1.9 (1.0-2.3); Alkaline Phosphatase 74 U/L (39-117); Bilirubin,Direct 0.2 mg/dL (<0.3); Bilirubin,Total 0.7 mg/dL (0.1-1.0); Blood Urea Nitrogen 9 mg/dL (8-23); Calcium 8.2 mg/dL (8.6-10.4); Carbon Dioxide 29 mmol/L (22-30); Chloride 97 mmol/L (96-108); Globulin 2.2 gm/dL (2.2-3.7); Glomerular Filtration Rate 116; Glucose 99 mg/dL (70-105); Lactate Dehydrogenase 263 U/L (135-225); Phosphorous 2.8 mg/dL (2.5-4.5); Potassium 4.1 mmol/L (3.3-5.1); Sodium 137 mmol/L (133-145); Triglycerides 63 mg/dL (<150); Uric Acid 5.1 mg/dL (2.5-8.0)
[2023-12-31] MEDS ORDERED: THIAMINE 100 MG in 0.9 % SODIUM CHLORIDE 50 ML IV SCH (09:00)
[2023-12-31] MEDS: THIAMINE 300 MG in 0.9 % SODIUM CHLORIDE 50 ML IV SCH (09:35)
[2023-12-31] MEDS: MULTIVIT,THER IRON,CA,FA & MIN 1 TABLET PO SCH (09:35)
[2023-12-31] MEDS: FOLIC ACID 1 MG TABLET PO SCH (09:35)
[2023-12-31] MEDS: ENOXAPARIN 40 MG/0.4 ML SYRINGE SQ SCH (09:35)
[2023-12-31] MEDS: MAGNESIUM HYDROXIDE 30 ML ORAL.SUSP PO PRN (17:27)
[2023-12-31] MEDS: ACETAMINOPHEN 325 MG TABLET PO PRN (17:27)
[2024-01-01 06:22] LABS: ALT/SGPT 27 U/L (<40); AST/SGOT 37 U/L (<40); Albumin/Globulin Ratio 1.8 (1.0-2.3); Alkaline Phosphatase 75 U/L (39-117); Bilirubin,Direct < 0.2 mg/dL (0-0.3); Bilirubin,Total 0.5 mg/dL (0.1-1.0); Blood Urea Nitrogen 9 mg/dL (8-23); Calcium 8.9 mg/dL (8.6-10.4); Carbon Dioxide 28 mmol/L (22-30); Chloride 99 mmol/L (96-108); Globulin 2.2 gm/dL (2.2-3.7); Glomerular Filtration Rate 108; Glucose 132 mg/dL (70-105); Lactate Dehydrogenase 215 U/L (135-225); Potassium 4.1 mmol/L (3.3-5.1); Sodium 137 mmol/L (133-145); Triglycerides 46 mg/dL (<150); Uric Acid 4.6 mg/dL (2.5-8.0)
[2024-01-02 06:21] LABS: ALT/SGPT 25 U/L (<40); AST/SGOT 32 U/L (<40); Albumin 4.2 gm/dL (3.2-5.2); Albumin/Globulin Ratio 1.7 (1.0-2.3); Alkaline Phosphatase 81 U/L (39-117); Bilirubin,Direct < 0.2 mg/dL (0-0.3); Bilirubin,Total 0.4 mg/dL (0.1-1.0); Blood Urea Nitrogen 8 mg/dL (8-23); Calcium 9.6 mg/dL (8.6-10.4); Carbon Dioxide 25 mmol/L (22-30); Chloride 100 mmol/L (96-108); Globulin 2.5 gm/dL (2.2-3.7); Glomerular Filtration Rate 108; Glucose 158 mg/dL (70-105); Lactate Dehydrogenase 206 U/L (135-225); Phosphorous 4.3 mg/dL (2.5-4.5); Sodium 137 mmol/L (133-145); Triglycerides 75 mg/dL (<150); Uric Acid 4.4 mg/dL (2.5-8.0)
[2024-01-02] MEDS: OMEPRAZOLE 20 MG CAPSULE PO SCH (07:19)
[2024-01-02 08:06] LABS: Basophils # (Auto) 0.04 K/mcL (0.00-0.30); Eosinophils # (Auto) 0.14 K/mcL (0.00-0.70); Eosinophils % (Auto) 3.6 % (0.0-7.0); Hematocrit 39.7 % (40.1-51.0); Hemoglobin 12.5 g/dL (13.7-17.5); Lymphocytes % (Auto) 25.4 % (15.5-49.0); Mean Cell Volume 90.2 fL (80.0-100.0); Mean Corpuscular HGB Conc 31.5 g/dL (31.0-36.0); Mean Platelet Volume 9.8 fL (8.8-12.5); Monocytes # (Auto) 0.51 K/mcL (0.10-0.90); Neutrophils % (Auto) 56.5 % (38.0-78.0); Platelet Count 152 K/mcL (140-440); Red Cell Distribution Width 16.4 % (11.5-14.5); WBC 3.9 K/mcL (4.5-11.0)
[2024-01-02] MEDS: LISINOPRIL 2.5 MG TABLET PO SCH (08:17)
[2024-01-02] MEDS: THIAMINE 100 MG TABLET PO SCH (08:17)
[2024-01-02] MEDS ORDERED: ATORVASTATIN 20 MG TABLET PO SCH (21:00)
== END 2024-01-02 09:54 | disposition home or self-care (01) | DRG 897 ==
LOC: ED 10:59 → ICU 17:19
PROVIDERS: ADMIT Internal Medicine; ATTEND Internal Medicine